=== PATIENT | male | born 1955 | race Caucasian/White ===

== ENCOUNTER 2016-07-01 07:25 | Outpatient (CLI) | payer MEDICARE, MEDICAID | END 2016-07-01 07:26 | disposition home or self-care (01) | DX: E55.9 Vitamin D deficiency, unspecified (principal); M88.82 Osteitis deformans of upper arm ==

== ENCOUNTER 2016-07-27 08:00 | Outpatient (CLI) | payer MEDICARE, MEDICAID | END 2016-07-27 08:01 | disposition home or self-care (01) | DX: E78.5 Hyperlipidemia, unspecified (principal); Z12.5 Encounter for screening for malignant neoplasm of prostate; Z79.899 Other long term (current) drug therapy | CPT/HCPCS: 36415; 80053; 80061; 80178; 84443; G0103 ==

== ENCOUNTER 2016-08-19 11:40 | Outpatient (CLI) | payer MEDICARE, MEDICAID | END 2016-08-19 11:41 | disposition home or self-care (01) | DX: M88.82 Osteitis deformans of upper arm (principal); E55.9 Vitamin D deficiency, unspecified ==

== ENCOUNTER 2016-11-02 08:00 | Outpatient (CLI) | payer MEDICARE, MEDICAID ==
[2016-11-05 18:37] LABS: TEST RESULT REPORT (())
== END 2016-11-02 08:01 | disposition home or self-care (01) ==
LOC: LAB.WCP 08:00
PROVIDERS: ATTEND Internal Medicine Endocrinology, Diabetes & Metabolism
DX: M88.82 Osteitis deformans of upper arm (principal)
CPT/HCPCS: 36415; 81599; 84075

== ENCOUNTER 2016-12-01 15:57 | Outpatient (CLI) | payer MEDICARE, MEDICAID ==
[2016-12-01 19:19] LABS: BILIRUBIN,TOTAL 0.7 mg/dL (0.2-1.0); TOTAL PROTEIN 7.5 g/dL (6.7-8.2)
[2016-12-01 19:26] LABS: BILIRUBIN,DIRECT < 0.1 mg/dL (0.1-0.5)
== END 2016-12-01 15:58 | disposition home or self-care (01) ==
LOC: LAB.WCP 15:57
PROVIDERS: ATTEND Physician Assistant Medical
DX: Z79.899 Other long term (current) drug therapy (principal)
CPT/HCPCS: 36415; 80076

== ENCOUNTER 2016-12-02 11:20 | Outpatient (CLI) | payer MEDICARE, MEDICAID ==
--- NOTE | 2016-12-02 16:00 | XRAY Report ---
THREE VIEW STANDING RIGHT KNEE: 12/02/2016 CLINICAL INDICATION: Pain. FINDINGS: AP, lateral, and sunrise views of the right knee demonstrate severe osteoarthritis, with c omplete collapse of the lateral femorotibial joint space. A small effusion is present. Postoperative changes of previous ACL reconstruction are noted. IMPRESSION: SEVERE OSTEOARTHRITIS. POSTOPERATIVE CHANGES. SMALL EFFUSION. JOB #: [id number] EXT JOB #:[id number]
== END 2016-12-02 11:21 | disposition home or self-care (01) ==
LOC: DI 11:20
PROVIDERS: ATTEND Physician Assistant Medical
DX: M17.11 Unilateral primary osteoarthritis, right knee (principal)

== ENCOUNTER 2016-12-10 14:59 | Outpatient (CLI) | payer MEDICARE, MEDICAID ==
[2016-12-10 15:51] LABS: CREATININE 1.3 mg/dL (0.6-1.2)
[2016-12-10] MEDS ORDERED: GADOBUTROL 7.5 MMOL/7.5 ML VIAL IVP ONE (16:49)
--- NOTE | 2016-12-11 17:16 | MRI Report ---
EXAM: RIGHT KNEE MRI WITHOUT AND WITH CONTRAST EXAM DATE: 12/10/2016 05:15 PM. CLINICAL HISTORY: KNEE PAIN RIGHT. COMPARISON: X-ray 12/02/2016. TECHNIQUE: Multiplanar, multisequence T1-weighted and fluid-sensitive sequences of the knee before an d after administration of intravenous contrast. IV contrast: 7.5 cc gadavist gadolinium. Other: None. FINDINGS: Bones: Previous ACL repair with bone tunnels in expected positions. However, the ACL graft is disrupt ed. Severe degenerative joint disease in all 3 compartments with moderate subarticular cyst formation in the proximal tibiofibular compartment, and partial flattening of the medial and lateral condyle artic ular surfaces. No acute fracture. Articular Cartilage: Grade 4 chondromalacia in the lateral compartment. Grade 3 chondromalacia medial compartment. Grade 2 and 3 chondromalacia patella. Medial Meniscus: Large complex degenerated tear of the majority of the posterior horn and body medial meniscus with a 1 cm displaced flap fragment. Lateral Meniscus: Extensive degeneration versus prior partial meniscectomy posterior horn and body. N o displaced fragments. Cruciate Ligaments: ACL graft disrupted in the joint space. PCL intact. Collateral Ligaments: The medial collateral and lateral collateral ligamentous structures are intact. Tendons: The quadriceps, patellar, semimembranosus, and popliteus tendons are unremarkable. Musculature: Edema of the popliteus tendon. Other: Small joint effusion. Diffuse synovitis and synovial enhancement and thickening. 2 x 0.5 cm lo ose joint body anterior intercondylar joint space. No popliteal cyst. The medial and lateral retinacu la are intact. Mild soft tissue edema. IMPRESSION: 1. Severe degenerative joint disease in all 3 compartments with subarticular cyst formation proximal tibiofibular joint. 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 2. Disrupted ACL graft. 3. Complex degenerated tear posterior horn and body medial meniscus with displaced flap fragment. 4. Degenerated posterior horn and body lateral meniscus. 5. Anterior 2 x 0.5 cm loose joint body. 6. Joint effusion and synovitis. [facility] MUSCULOSKELETAL RADIOLOGY SECTION Referring Provider Line: [phone] SITE ID: [id number]
== END 2016-12-10 15:00 | disposition home or self-care (01) ==
LOC: LAB 14:59
PROVIDERS: ATTEND Physician Assistant Medical
DX: S83.231A Complex tear of medial meniscus, current injury, right knee, initial encounter (principal); T84.89XA Other specified complication of internal orthopedic prosthetic devices, implants and grafts, initial encounter; M23.351 Other meniscus derangements, posterior horn of lateral meniscus, right knee; M25.461 Effusion, right knee; M65.88 Other synovitis and tenosynovitis, other site; M23.41 Loose body in knee, right knee; M17.11 Unilateral primary osteoarthritis, right knee; Z79.899 Other long term (current) drug therapy; M94.261 Chondromalacia, right knee; S83.194A Other dislocation of right knee, initial encounter
CPT/HCPCS: 36415; 73723; 82565; A9585

== ENCOUNTER 2017-01-02 08:20 | Outpatient (CLI) | payer MEDICARE, MEDICAID | END 2017-01-02 08:21 | disposition home or self-care (01) | LOC: DI 08:20 | PROVIDERS: ATTEND Physician Assistant Medical | DX: I49.9 Cardiac arrhythmia, unspecified (principal); I51.7 Cardiomegaly | CPT/HCPCS: 93306 ==

== ENCOUNTER 2017-01-25 10:53 | Outpatient (CLI) | payer MEDICARE, MEDICAID ==
[2017-01-28 19:47] LABS: TEST RESULT REPORT (())
== END 2017-01-25 10:54 | disposition home or self-care (01) ==
LOC: LAB.WCP 10:53
PROVIDERS: ATTEND Internal Medicine Endocrinology, Diabetes & Metabolism
DX: M88.82 Osteitis deformans of upper arm (principal)
CPT/HCPCS: 36415; 81599; 84075

== ENCOUNTER 2017-01-27 08:12 | Outpatient (CLI) | payer MEDICARE, MEDICAID ==
--- NOTE | 2017-01-27 12:05 | CARDIAC PROCEDURE NOTE ---
DATE OF SERVICE: 01/27/2017 00:00:00 PRIMARY CARE PHYSICIAN: Geri Gmaboa PA-C PROCEDURE: Pharmacologic stress test with Lexiscan. PROCEDURE SYMPTOMS: Preoperative total knee replacement with intraventricular conduction delay and LV H. CARDIAC RISK FACTORS: Include age. PREVIOUS CARDIAC PROCEDURES: Echocardiogram. CURRENT SYMPTOMATOLOGY: No current symptoms. CLINICAL HISTORY: A 61-year-old male without known coronary artery disease. INITIAL RESTING VITAL SIGNS: Blood pressure 138/78, heart rate 54, height 72 inches, weight 223 pound s, BMI 30.3. PROCEDURE AND FINDINGS: The patient's identity and date verified. Consent signed. Safety stop. Pharmacologic stress testing was performed with Lexiscan at a dose of 0.4 mg over 10 seconds. The hea rt rate increased to 77 beats per minute during the infusion. Blood pressure response was normal duri ng the stress procedure. The patient developed symptoms of head pressure, which spontaneously subside d. The resting ECG demonstrated sinus rhythm with an intraventricular conduction delay of incomplete right bundle branch block. Maximum ST segment depression was zero. There was no ectopy. FINAL IMPRESSION 1. Negative stress electrocardiogram for ischemia by electrocardiographic criteria. 2. Negative stress test clinically for angina. 3. No ectopy. 4. Await myocardial perfusion scan report. JOB #: [id number] EXT JOB #:[id number]
--- NOTE | 2017-01-27 15:37 | Nuclear Medicine Report ---
EXAM: SINGLE-ISOTOPE PHARMACOLOGICAL STRESS TEST WITH ADENOSINE. SINGLE-ISOTOPE AND SAME-DAY REST/STRESS MY OCARDIAL PERFUSION SCANS WITH TOMOGRAPHIC IMAGING, QUANTITATIVE ANALYSIS, WALL MOTION ANALYSIS AND CA LCULATION OF EJECTION FRACTION. EXAM DATE: 01/27/2017 09:57 AM. CLINICAL HISTORY: Arrhythmia, left ventricular hypertrophy. COMPARISON: Prior CT 2011. TECHNIQUE: Following the intravenous administration of 11 mCi of Tc-99m sestamibi, a rest myocardial perfusion scan was done with tomography. Motion correction was applied when appropriate. After a delay of several hours on the same day, a pharmacological stress was performed with the infus ion of adenosine. According to protocol, 40 mCi of Tc-99m sestamibi was injected for stress myocardia l perfusion scan. Stress myocardial perfusion was done with tomography without attenuation correction . Motion correction was applied when appropriate. Gated tomographic images were obtained for wall motion analysis and computation of left ventricular ejection fraction. FINDINGS: There is a moderate severity, small, reversible perfusion defect in the apical segment sugg estive of ischemia. There are no fixed perfusion defects. No other convincing perfusion abnormalities. No convincing evidence of transient ischemic dilatation. Resting wall motion analysis demonstrates normal wall motion The left ventricular end-diastolic volume is 125 cc. The left ventricular end-systolic volume is 40 c c. The left ventricular ejection fraction is calculated to be 68%. IMPRESSION: 1. Reversible perfusion defect in the apical segment suggestive of ischemia. 2. Normal left ventricular ejection fraction of 68%. 3. Normal segmental and global wall motion. 4. Normal left ventricular cavity size, no change with stress. YOHAN Referring Provider Line: [phone] SITE ID: [id number]
[2017-01-27 17:55] VITALS: BP 138/78
== END 2017-01-27 08:13 | disposition home or self-care (01) ==
LOC: DI 08:12
PROVIDERS: ATTEND Physician Assistant Medical
DX: I51.7 Cardiomegaly (principal); I49.9 Cardiac arrhythmia, unspecified
CPT/HCPCS: 78452; 93017; A9500

== ENCOUNTER 2017-02-08 13:02 | Emergency (ER) | payer MEDICARE, MEDICAID ==
--- NOTE | 2017-02-08 13:46 | ED Physician Documentation ---
History of Present Illness - Stated complaint Stated Complaint: CHEST PAIN - Chief complaint Chief Complaint: Cardiac - Additonal information Additional information: hx from pt 61 male to ER today with chest pain waxing and waning since 11Am, associated SOA and fatigue known CAD - he had pre-op work up that revealed a fib and subsequent stress testing showed a blockage and he is due to get angioplasty next tuesday took nitro X 2 s relief so came to ER as instructed presently no pain but has been waxing and waning Review of Systems Constitutional: denies: Fever, Chills Cardiac: reports: Chest pain / pressure Respiratory: reports: Dyspnea GI: denies: Abdominal Pain, Vomiting, Diarrhea Musculoskeletal: denies: Extremity swelling Neurologic: denies: Generalized weakness Endocrine: denies: Easy bruising / bleeding Immunocompromised: denies: Immunocompromised PD PAST MEDICAL HISTORY - Past Medical History Past Medical History: Yes Cardiovascular: High cholesterol Respiratory: None Neuro: None Endocrine/Autoimmune: None GI: Hemorrhoids : None HEENT: Chronic vision loss Psych: Anxiety, Bipolar disorder Musculoskeletal: Osteoarthritis, Chronic back pain Derm: None - Past Surgical History Past Surgical History: Yes General: Appendectomy Ortho: Other - Present Medications Home Medications: Ambulatory Orders Medication Instructions Recorded Confirmed [place] 1,200 mg PO DAILY 10/18/12 02/08/17 Cyclobenzaprine [Flexeril] 5 mg PO TID PRN 11/08/12 02/08/17 QUEtiapine [SEROquel] 200 mg PO HS 11/08/12 02/08/17 DULoxetine [Cymbalta] 20 02/08/17 oxyCODONE ER [OxyCONTIN] 10 mg PO BID 02/08/17 02/08/17 - Allergies Allergies/Adverse Reactions: Allergies Allergy/AdvReac Type Severity Reaction Status Date / Time Penicillins Allergy Severe Respiratory Verified 11/08/12 18:07 - Social History Does the pt smoke?: No Smoking Status: Never smoker Does the pt drink ETOH?: No Does the pt have substance abuse?: No - Immunizations Immunizations are current?: Yes - POLST Patient has POLST: No PD ED PE NORMAL - Vitals Vital signs reviewed: Yes - General General: Alert and oriented X 3 - Cardiac Cardiac: RRR - Respiratory Respiratory: No respiratory distress - Abdomen Abdomen: Soft, Non tender - Extremities Extremities: No deformity, No edema - Neuro Neuro: Alert and oriented X 3, No motor deficit, No sensory deficit Results - Vitals Vitals: Vital Signs - 24 hr 02/08/17 02/08/17 02/08/17 13:11 14:39 15:12 Temperature Heart Rate 56 L 52 L 59 L Respiratory 16 Rate Blood Pressure 112/61 113/72 120/99 H O2 Saturation 98 99 96 02/08/17 16:10 Temperature 36.6 C Heart Rate 59 L Respiratory 16 Rate Blood Pressure 116/82 H O2 Saturation 96 Oxygen O2 Source Room air - EKG (time done) 1315 Rate: Rate (enter#) (59) Rhythm: NSR [place]: Normal Intervals: Normal HI QRS: Normal Ischemia: Normal ST segments - Labs Labs: Laboratory Tests 02/08/17 02/08/17 02/08/17 13:50 13:50 13:50 WBC 7.4 RBC 4.15 L Hgb 12.8 L Hct 37.4 L MCV 90.1 MCH 30.8 MCHC 34.2 RDW 12.6 Plt Count 215 MPV 7.0 L Neut # 4.7 Lymph # 1.8 [place] # 0.5 Eos # 0.4 Baso # 0.0 Absolute Nucleated RBC 0.00 Nucleated RBCs 0.0 Sodium 137 Potassium 4.0 Chloride 107 Carbon Dioxide 24 Anion Gap 6.0 BUN 15 Creatinine 0.9 Estimated GFR (MDRD) 86 L Glucose 103 H Calcium 9.6 Total Bilirubin 0.3 AST 18 ALT 23 Alkaline Phosphatase 42 Troponin I < 0.04 Total Protein 7.4 Albumin 4.4 Globulin 3.0 Albumin/Globulin Ratio 1.5 Lipase 18 L - Rads (name of study) CXR Radiology: See rad report (mild vascular fullness) PD MEDICAL DECISION MAKING - ED course ED course: known CAD due for angioplasty now with new chest pain not relieved with nitro at home spoke with cardio Dr Mccormick at [facility] and she accept pt in transfer and agrees with starting heparin in addition to asa and nitro past Departure - Departure Disposition: 02 Transfer Acute Care Hosp Clinical Impression: Chest pain Qualifiers: Chest pain type: unspecified Qualified Code(s): R07.9 - Chest pain, unspecified Condition: Good Discharge Date/Time: 02/08/17 16:25
[2017-02-08 13:56] LABS: BASOPHILS % (AUTO) 0.5 %; EOSINOPHILS # (AUTO) 0.4 10^3/uL (0.0-0.7); HCT - HEMATOCRIT 37.4 % (42.0-52.0); HGB - HEMOGLOBIN 12.8 g/dL (14.0-18.0); LYMPHOCYTES # (AUTO) 1.8 10^3/uL (1.5-3.5); LYMPHOCYTES % (AUTO) 24.6 %; MEAN CORPUSCULAR HEMOGLOBIN 30.8 pg (27.0-31.0); MEAN CORPUSCULAR HGB CONC 34.2 g/dL (32.0-36.0); MEAN CORPUSCULAR VOLUME 90.1 fL (80.0-94.0); MONOCYTES # (AUTO) 0.5 10^3/uL (0.0-1.0); MONOCYTES % (AUTO) 6.3 %; NEUTROPHILS # (AUTO) 4.7 10^3/uL (1.5-6.6); NEUTROPHILS % (AUTO) 63.6 %; RED BLOOD COUNT 4.15 10^6/uL (4.70-6.10); RED CELL DISTRIBUTION WIDTH 12.6 % (12.0-15.0); UNCORRECTED WHITE BLOOD COUNT 7.4 x10^3/uL; WHITE BLOOD COUNT 7.4 x10^3/uL (4.8-10.8)
[2017-02-08 14:09] LABS: ALBUMIN/GLOBULIN RATIO 1.5 (1.0-2.2); BILIRUBIN,TOTAL 0.3 mg/dL (0.2-1.0); CALCIUM 9.6 mg/dL (8.5-10.3); CREATININE 0.9 mg/dL (0.6-1.2); TOTAL PROTEIN 7.4 g/dL (6.7-8.2)
[2017-02-08] MEDS ORDERED: ASPIRIN CHEW 81 MG TABLET PO STA (14:27)
[2017-02-08] MEDS ORDERED: NITROGLYCERIN 2% PASTE TOP STA (14:27)
[2017-02-08] MEDS ORDERED: NITROGLYCERIN 2% PASTE TOP ONE (14:34)
[2017-02-08] MEDS ORDERED: ASPIRIN CHEW 81 MG TABLET ONE (14:34)
--- NOTE | 2017-02-08 14:36 | XRAY Preliminary Report ---
Exam: XR Chest 1 View IMPRESSION: Mild vascular fullness. [facility] SITE ID: [id number]
[2017-02-08] MEDS ORDERED: SODIUM CHLORIDE FLUSH 0.9% 10 ML SYRINGE IVP ONE (14:37)
--- NOTE | 2017-02-08 14:38 | XRAY Report ---
EXAM: CHEST RADIOGRAPHY EXAM DATE: 02/08/2017 02:23 PM. CLINICAL HISTORY: Cp soa. COMPARISON: None. TECHNIQUE: 1 view. FINDINGS: Lungs/Pleura: No localized infiltrate, consolidation, effusion, or pneumothorax. Mediastinum: Normal heart size. Mild diffuse vascular fullness. Other: Degenerative changes. IMPRESSION: Mild vascular fullness. [facility] Referring Provider Line: [phone] SITE ID: [id number]
[2017-02-08] MEDS ORDERED: HEPARIN 5,000 UNIT/ML VIAL IVP ONE (14:47)
[2017-02-08] MEDS ORDERED: HEPARIN 25,000 UNITS/500 ML 500 ML IV STA (14:47)
[2017-02-08] MEDS ORDERED: HEPARIN 5,000 UNIT/ML VIAL ONE (14:53)
[2017-02-08] MEDS ORDERED: HEPARIN 25,000 UNITS/500 ML 500 ML IV ONE (14:53)
[2017-02-08] MEDS ORDERED: oxyCODONE ER 10 MG TABLET PO STA (16:02)
[2017-02-08] MEDS ORDERED: oxyCODONE 5 MG TABLET ONE (16:06)
[2017-02-08 16:10] VITALS: BP 116/82
== END 2017-02-08 16:25 | disposition short-term general hospital (02) ==
LOC: ED 13:02
DX: R07.9 Chest pain, unspecified (principal); I25.10 Atherosclerotic heart disease of native coronary artery without angina pectoris; E78.00 Pure hypercholesterolemia, unspecified
CPT/HCPCS: 36415; 71010; 80053; 83690; 84484; 85025; 93005; 96365; 96376; 99284; A9270

== ENCOUNTER 2017-02-08 16:10 | Outpatient (CLI) | payer MEDICARE, MEDICAID | END 2017-02-08 16:11 | disposition short-term general hospital (02) | LOC: EMS 16:10 | PROVIDERS: ATTEND Surgery | DX: I24.9 Acute ischemic heart disease, unspecified (principal) | CPT/HCPCS: A0425; A0426 ==

== ENCOUNTER 2017-03-01 08:00 | Outpatient (CLI) | payer MEDICARE, MEDICAID | END 2017-03-01 08:01 | disposition home or self-care (01) | LOC: LAB.R 08:00 | PROVIDERS: ATTEND Physician Assistant Medical | DX: M17.11 Unilateral primary osteoarthritis, right knee (principal); Z01.818 Encounter for other preprocedural examination | CPT/HCPCS: 87640 ==

== ENCOUNTER 2017-03-29 05:47 | Inpatient (IN) | payer MEDICARE, MEDICAID ==
[2017-03-29] MEDS ORDERED: CELECOXIB 100 MG CAPSULE PO ONE (06:33)
[2017-03-29] MEDS ORDERED: ceFAZolin 2 GM/50 ML 0 GM/0 ML BAG IV ONE (06:33)
[2017-03-29] MEDS ORDERED: ACETAMINOPHEN 1,000 MG/100 ML 100 ML IV ONE ×2 (06:34→10:15)
[2017-03-29] MEDS ORDERED: LACTATED RINGERS 1,000 ML IV ONE ×3 (06:59→10:06)
[2017-03-29] MEDS ORDERED: CLINDAMYCIN 600 MG/50 ML 50 ML IV ONE (07:24)
[2017-03-29] MEDS ORDERED: MORPHINE PF 10 MG/10 ML AMP SUBQ ONE (08:23)
[2017-03-29] MEDS ORDERED: EPINEPHrine 1 MG/ML AMP SUBQ ONE (08:26)
[2017-03-29] MEDS ORDERED: KETOROLAC 30 MG/ML VIAL IM ONE (08:27)
[2017-03-29] MEDS ORDERED: ROPIVACAINE 0.2% PF 20 ML AMPULE SUBQ ONE (08:31)
[2017-03-29] MEDS ORDERED: BUPIVACAINE 0.5% PF 30 ML VIAL SUBQ ONE (08:32)
[2017-03-29] MEDS ORDERED: DEXAMETHASONE 4 MG/ML VIAL IVP ONE (10:15)
[2017-03-29] MEDS ORDERED: ONDANSETRON 4 MG/2 ML VIAL IVP ONE (10:15)
[2017-03-29] MEDS ORDERED: KETOROLAC 30 MG/ML VIAL IVP ONE (10:15)
[2017-03-29] MEDS ORDERED: LIDOCAINE-MPF 2% 5 ML VIAL IM ONE (10:15)
[2017-03-29] MEDS ORDERED: PROPOFOL 200 MG/20 ML VIAL IVP ONE (10:15)
[2017-03-29] MEDS ORDERED: CLINDAMYCIN 600 MG IV ONE (10:15)
[2017-03-29] MEDS ORDERED: METOCLOPRAMIDE 10 MG/2 ML VIAL IVP ONE (10:15)
[2017-03-29] MEDS ORDERED: TRANEXAMIC ACID 1,000 MG/10 ML VIAL IV ONE (10:15)
[2017-03-29] MEDS ORDERED: HYDROCORTISONE 1% CREAM 28 GM TUBE TOP PRN (10:24)
[2017-03-29] MEDS ORDERED: NITROGLYCERIN SL 0.4 MG TABLET SL PRN (10:24)
--- NOTE | 2017-03-29 10:24 | OPERATIVE REPORT ---
Operative Report - General Admit Date: 03/29/17 Procedure Date: 03/29/17 Planned Procedure: Right TKA Pre-Op Diagnosis: DJD right Knee Procedure Performed: Right total knee arthroplasty Post Op Diagnosis: same - Procedure Note Primary Surgeon: charmaine Anesthesia Technique: General mask, Spinal Estimated Blood Loss (mL): 50 Urine Output (mL): 250 Drain/Tube Type: Hemovac
[2017-03-29] MEDS ORDERED: SODIUM CHLORIDE FLUSH 0.9% 10 ML SYRINGE IVP PRN (10:26)
[2017-03-29] MEDS ORDERED: PROCHLORPERAZINE 10 MG/2 ML VIAL IVP PRN (10:26)
[2017-03-29] MEDS ORDERED: BISACODYL 10 MG SUPP PR PRN (10:26)
[2017-03-29] MEDS ORDERED: ACETAMINOPHEN 325 MG TABLET PO PRN (10:26)
[2017-03-29] MEDS ORDERED: ONDANSETRON 4 MG/2 ML VIAL IVP PRN (10:26)
[2017-03-29] MEDS: oxyCOD/ACETAMIN 5 MG/325 MG TABLET PO PRN ×3 (12:02→22:19)
--- NOTE | 2017-03-29 12:28 | XRAY Report ---
TWO-VIEW RIGHT KNEE: 03/29/2017 CLINICAL INDICATION: Post-op. FINDINGS: Frontal and lateral views of the right knee demonstrate a right total knee replacement in place. Subcutaneous gas and suprapatellar drain are noted. There is a retention button along the la teral femoral condyle from a previous right ACL replacement. There is no evidence of acute fracture or immediate hardware complication. IMPRESSION: EXPECTED POSTOPERATIVE APPEARANCE OF RIGHT KNEE REPLACEMENT. JOB #: [id number] EXT JOB #:[id number]
[2017-03-29] MEDS: HYDROmorphone 1 MG/ML AMP IVP PRN ×3 (12:54→19:10)
[2017-03-29] MEDS: SODIUM CHLORIDE FLUSH 0.9% 10 ML SYRINGE IVP SCH ×2 (13:09→22:15)
--- NOTE | 2017-03-29 13:25 | OPERATIVE REPORT ---
DATE OF SURGERY: 03/29/2017 00:00:00 PREOPERATIVE DIAGNOSIS: Right knee severe osteoarthritis. POSTOPERATIVE DIAGNOSIS: Right knee severe osteoarthritis. NAME OF PROCEDURE: Right total knee replacement arthroplasty. SURGEON: Aida Aly MD ANESTHESIA: Was by Dr. Deleon. INDICATIONS FOR SURGERY: The patient is a 62-year-old male with multiple previous right knee surgerie s including anterior cruciate ligament reconstruction, who has a progressively developed severe osteo arthritis of his knee and now presents for total knee arthroplasty. The patient has failed nonoperati ve treatment. FINDINGS AT SURGERY: The patient was found to have severe degeneration of his knee with hypertrophic and generalized spurs and loose bodies and degeneration of his meniscal tissues and failure of his AC L graft. The bone quality was fairly good. DESCRIPTION OF OPERATIVE PROCEDURE: The patient was taken to the operating room. He was given a spina l anesthetic and then general anesthesia by mask as the procedure was undertaken. A timeout was held, after which the limb was sterilely prepped and draped in standard fashion and the tourniquet inflate d to 300 mmHg. A curved incision was made under tourniquet control, and a medial parapatellar incisio n made. The patient had dense scarring around his knee and prominent loose bodies, some of which were then removed, as well as the residuals of anterior crucial ligament and medial and lateral meniscus. A lateral release was performed on the patella to allow mobilization, and the patella was actually r esected down 9 mm to reduce its bulk and size. Osteophytes were removed from the surfaces of the bone . A central medullary hole was made in the femur for the distal cutting block, and this cut was made resecting an additional 2 mm. The distal sizing block was applied, and the femur sized as a 9, and th e cutting block was applied, and the 4-in-1 cuts were then made. The patient was very tight posterior ly, and posterior osteophytes were resected with an osteotome, after which the femur was subluxated a nteriorly with retractors, and the proximal tibia cutting guide was applied, allowing a 2 mm resectio n below the low point of the lateral plateau, which had the most wear. Additional 2 mm were taken aft er the resection appeared subadequate. The residual posterior horns of the menisci were removed, and at this point, it was elected to recess and remove the PCL. Posterior osteophytes were again searched for, and more osteophyte and loose bodies were removed. A sizing block was placed on the proximal ti panfilo, which allowed a size F implant to be used and appropriate drilling and broaching for the stem. I t was elected to use a long stem on this patient. The trial components were then brought into the fie ld, placing the size F base plate on the tibia, placing the size 9 normal femur, followed by sequenti al poly sizes with 16 mm being most successful in restoring stability. The patella sized at a 32 mm d iameter, 8.5 mm thickness to restore anatomy. The trials were successful and stable and allowed range of motion and had good fit. They were removed from the knee, and the surfaces were flushed and irrig ated as the components were opened, and once they were dried and the cement was mixed, the components were cemented in, starting with the tibia size F cemented baseplate with a tapered extension on the 14 mm diameter x 30 mm on the tibial baseplate, cementing in the #9 femur, cruciate retaining type, f ollowed by the insertion of highly crosslinked polyethylene all poly patella 32 mm diameter on the kn ee and a 16 mm insert medial congruent poly in the tibia. The stability was good and range of motion excellent, and with these cemented in place, all excess cement was removed, and prior to closure, the cement hardened. A drain was placed, and closure was with interrupted layers of FiberWire in the med ial retinaculum, layers of Vicryl subcutaneous and Monocryl closure of skin. The sterile dressings we re applied, and the drain was secured, and the patient was then transported onto a gurney into the re covery room in stable condition. ESTIMATED BLOOD LOSS: Minimal. COMPLICATIONS: None. SPONGE AND NEEDLE COUNTS: Correct. JOB #: [id number] EXT JOB #:[id number]
[2017-03-29] MEDS: ASPIRIN 325 MG TABLET PO SCH (16:07)
[2017-03-29] MEDS: SODIUM CHLORIDE 0.45% 1,000 ML IV SCH (16:07)
[2017-03-29] MEDS ORDERED: QUEtiapine 25 MG TABLET PO SCH (20:00)
[2017-03-29] MEDS: ATORVASTATIN 10 MG TABLET PO SCH (20:07)
[2017-03-29] MEDS: CYCLOBENZAPRINE 10 MG TABLET PO PRN (20:07)
[2017-03-30] MEDS: HYDROmorphone 1 MG/ML AMP IVP PRN ×7 (00:18→22:48)
[2017-03-30] MEDS: SODIUM CHLORIDE 0.45% 1,000 ML IV SCH ×3 (01:33→20:44)
[2017-03-30] MEDS: oxyCOD/ACETAMIN 5 MG/325 MG TABLET PO PRN ×6 (02:15→23:44)
[2017-03-30] MEDS: SODIUM CHLORIDE FLUSH 0.9% 10 ML SYRINGE IVP SCH ×3 (06:20→22:11)
[2017-03-30 06:31] LABS: HCT - HEMATOCRIT 29.6 % (42.0-52.0); HGB - HEMOGLOBIN 9.9 g/dL (14.0-18.0)
[2017-03-30 06:37] LABS: CALCIUM 8.8 mg/dL (8.5-10.3); CREATININE 0.9 mg/dL (0.6-1.2); POTASSIUM 3.8 mmol/L (3.5-5.0)
[2017-03-30] MEDS: CYCLOBENZAPRINE 10 MG TABLET PO PRN ×3 (07:40→22:08)
[2017-03-30] MEDS ORDERED: QUEtiapine 25 MG TABLET PO SCH (08:49)
[2017-03-30] MEDS: POLYETHYLENE GLYCOL 3350 17 GM PACKET PO SCH (08:55)
[2017-03-30] MEDS: ASPIRIN 325 MG TABLET PO SCH ×2 (08:56→16:14)
[2017-03-30] MEDS: DOCUSATE SODIUM 250 MG CAPSULE PO SCH (08:56)
[2017-03-30] MEDS: DULoxetine 30 MG CAPSULE PO SCH (08:56)
[2017-03-30] MEDS: SENNA 8.6 MG TABLET PO PRN ×2 (08:57→23:44)
[2017-03-30] MEDS: ACETAMINOPHEN 1,000 MG/100 ML 100 ML IV PRN (08:58)
--- NOTE | 2017-03-30 08:59 | PROVIDER PROGRESS NOTE ---
Subjective - General Admit Date: 03/29/17 Procedure Date: 03/29/17 Post Op Days: 1 Procedure Performed: Right total Knee Arthroplasty Objective - Patient Data Reviewed Vital Signs: Yes Vital Signs: Vital Signs x48h Temp Pulse Resp BP BP Pulse Ox 03/30/17 07:31 36.5 C 66 20 123/64 96 03/30/17 04:00 36.6 C 67 18 105/54 L 98 Weight: Weight 03/28/17 03/29/17 03/30/17 23:59 23:59 23:59 Weight (kg) 96.3 kg Intake & Output: Intake and Output Totals x24h 03/28/17 03/29/17 03/30/17 23:59 23:59 23:59 Intake Total 7227.687 1964.667 Output Total 2480 1730 Balance -1478.333 -492.333 - Lab Results Lab Results: 03/30/17 05:40 03/30/17 05:40 Other Lab Results: Lab Results x24hrs 03/30/17 03/30/17 Range/Units 05:40 05:40 Hgb 9.9 L (14.0-18.0) g/dL Hct 29.6 L (42.0-52.0) % Sodium 140 (135-145) mmol/L Potassium 3.8 (3.5-5.0) mmol/L Chloride 110 (101-111) mmol/L Carbon Dioxide 23 (21-32) mmol/L Anion Gap 7.0 (6-13) BUN 13 (6-20) mg/dL Creatinine 0.9 (0.6-1.2) mg/dL Estimated GFR (MDRD) 86 L (>89) Glucose 109 H (70-100) mg/dL Calcium 8.8 (8.5-10.3) mg/dL - Imaging Results Radiology Imaging: positive: EMP read indepedently - Current Medications Current Medications: Current Medications Generic Name Dose Route Start Last Admin Trade Name Freq PRN Reason Stop Dose Admin Aspirin 325 mg 03/29/17 17:00 03/29/17 16:07 Anais PO 325 mg BIDWM HEATH Administration Atorvastatin Calcium 10 mg 03/29/17 21:00 03/29/17 20:07 Lipitor PO 10 mg 2100 HEATH Administration Cyclobenzaprine HCl 10 mg 03/29/17 10:24 03/30/17 07:40 Flexeril PO 10 mg TID PRN Administration PAIN Hydromorphone HCl 1 mg 03/29/17 10:26 03/30/17 05:22 Dilaudid IVP 1 mg Q2HR PRN Administration Breakthrough Pain Sodium Chloride 1,000 mls @ 100 mls/hr 03/29/17 11:00 03/30/17 01:33 Normal Saline 0.45% IV 100 mls/hr .Q10H HEATH Administration Oxycodone/Acetaminophen 2 tab 03/29/17 10:26 03/30/17 06:19 Percocet 5 Mg/325 Mg PO 2 tab Q4HR PRN Administration PAIN Sodium Chloride 10 ml 03/29/17 14:00 03/30/17 06:20 Normal Saline Flush 0.9% IVP Not Given Q8HR HEATH
[2017-03-30] MEDS ORDERED: MAGNESIUM CITRATE 296 ML BOTTLE PO ONE (16:25)
[2017-03-30] MEDS: KETOROLAC 30 MG/ML VIAL IVP PRN (18:34)
[2017-03-30] MEDS ORDERED: LITHIUM 150 MG CAPSULE PO SCH (21:00)
[2017-03-30] MEDS ORDERED: SODIUM CHLORIDE FLUSH 0.9% 10 ML SYRINGE IVP ONE (21:16)
[2017-03-30] MEDS: ATORVASTATIN 10 MG TABLET PO SCH (22:08)
[2017-03-31] MEDS: KETOROLAC 30 MG/ML VIAL IVP PRN (02:24)
[2017-03-31] MEDS: HYDROmorphone 1 MG/ML AMP IVP PRN (03:01)
[2017-03-31] MEDS: oxyCOD/ACETAMIN 5 MG/325 MG TABLET PO PRN ×2 (04:38→10:08)
[2017-03-31] MEDS: SODIUM CHLORIDE FLUSH 0.9% 10 ML SYRINGE IVP SCH (05:53)
[2017-03-31] MEDS: SODIUM CHLORIDE 0.45% 1,000 ML IV SCH (05:59)
[2017-03-31] MEDS: CYCLOBENZAPRINE 10 MG TABLET PO PRN ×2 (06:00→11:15)
--- NOTE | 2017-03-31 09:44 | PROVIDER PROGRESS NOTE ---
Subjective - General Admit Date: 03/29/17 Procedure Date: 03/29/17 Post Op Days: 2 Procedure Performed: Right total Knee Arthroplasty - Review of Systems Wound/Incisions: positive: Healing well, No drainage General: positive: Fatigue Musculoskeletal: positive: Joint pain Psychiatric: positive: No symptoms Objective - Patient Data Reviewed Vital Signs: Yes Vital Signs: Vital Signs x48h Temp Pulse Resp BP Pulse Ox 03/31/17 07:39 36.5 C 68 18 96/79 92 03/31/17 06:00 37 C 67 16 116/54 L 98 Weight: Weight 03/29/17 03/30/17 03/31/17 23:59 23:59 23:59 Weight (kg) 96.3 kg Intake & Output: Intake and Output Totals x24h 03/29/17 03/30/17 03/31/17 23:59 23:59 23:59 Intake Total 8396.759 3400.001 1045 Output Total 2480 4005 1750 Balance -5418.397 4778.001 -705 - Lab Results Lab Results: 03/30/17 05:40 03/30/17 05:40 - Current Medications Current Medications: Current Medications Generic Name Dose Route Start Last Admin Trade Name Freq PRN Reason Stop Dose Admin Aspirin 325 mg 03/29/17 17:00 03/30/17 16:14 Anais PO 325 mg BIDWM HEATH Administration Atorvastatin Calcium 10 mg 03/29/17 21:00 03/30/17 22:08 Lipitor PO 10 mg 2100 HEATH Administration Cyclobenzaprine HCl 10 mg 03/29/17 10:24 03/31/17 06:00 Flexeril PO 10 mg TID PRN Administration PAIN Docusate Sodium 250 - 500 mg 03/30/17 09:00 03/30/17 08:56 Colace 250mg Capsule PO 250 mg DAILY HEATH Administration Duloxetine HCl 30 mg 03/30/17 09:00 03/30/17 08:56 Cymbalta PO 30 mg DAILY HEATH Administration Acetaminophen 100 mls @ 400 mls/hr 03/29/17 10:26 03/30/17 09:15 Ofirmev IV Infused Q6HR PRN Infusion PAIN [place] Carbonate 1,200 mg 03/30/17 21:00 03/30/17 22:09 PO 1,200 mg 2100 HEATH Administration Oxycodone/Acetaminophen 2 tab 03/29/17 10:26 03/31/17 04:38 Percocet 5 Mg/325 Mg PO 2 tab Q4HR PRN Administration PAIN Polyethylene Glycol 17 gm 03/30/17 09:00 03/30/17 08:55 Miralax PO 17 gm DAILY HEATH Administration Quetiapine Fumarate 50 mg 03/30/17 08:49 03/30/17 22:08 Seroquel PO 50 mg QPM HEATH Administration Senna 17.2 mg 03/29/17 10:26 03/30/17 23:44 Senokot PO 17.2 mg Q12H PRN Administration Constipation - Physical Exam Wound/Incisions: positive: Healing well Skin: positive: Warm, Dry Extremities: positive: Joint swelling Neurologic/Psychiatric: positive: Motor nml, Sensation nml, Mood/affect nml Impression/Plan - Problem List Problem List: POD #2 Pt is doing well with PT and with walker use. Wound healing well. Plan for d/c home
[2017-03-31] MEDS: ASPIRIN 325 MG TABLET PO SCH (10:04)
[2017-03-31] MEDS: DOCUSATE SODIUM 250 MG CAPSULE PO SCH (10:04)
[2017-03-31] MEDS: ACETAMINOPHEN 1,000 MG/100 ML 100 ML IV PRN (10:05)
[2017-03-31] MEDS: DULoxetine 30 MG CAPSULE PO SCH (10:05)
[2017-03-31] MEDS: POLYETHYLENE GLYCOL 3350 17 GM PACKET PO SCH (10:07)
--- NOTE | 2017-03-31 10:11 | Discharge Plan ---
Discharge Plan Disposition: 01 Home, Self Care Condition: Good Prescriptions: oxyCODONE/ACET 5/325 [Percocet 5 mg/325 mg] 2 tab PO Q4HR PRN #30 tablet PRN Reason: Pain Aspirin [Anais] 325 mg PO BIDWM #60 tablet Senna [Senokot] 17.2 mg PO Q12H PRN #20 tablet PRN Reason: Constipation Diet: Regular Activity Restrictions: Wt Bearing as Tolerated Shower Restrictions: Yes (COVERED) Driving Restrictions: Yes (NO DRIVING) Assistance Devices: Walker Weight Bearing: Full Weight No Smoking: If you smoke, Please STOP! Call for help. Follow-up with: Geri Gamboa PA-C [Primary Care Provider] - Aida Aly MD [Provider Admit Priv/Credential] -
[2017-03-31 10:27] VITALS: BP 134/68
[2017-03-31] MEDS ORDERED: MORPHINE 2 MG/ML SYRINGE IVP ONE (10:45)
[2017-03-31] MEDS ORDERED: oxyCODONE ER 10 MG TABLET PO SCH (11:00)
== END 2017-03-31 11:30 | disposition home or self-care (01) | DRG 470 ==
LOC: MS2 05:47 → MS3 08:18
PROVIDERS: ADMIT Orthopaedic Surgery; ATTEND Orthopaedic Surgery
PROC: 0SRC0J9 Replacement of Right Knee Joint with Synthetic Substitute, Cemented, Open Approach (ICD-10-PCS; principal; 2017-03-29 07:30)
DX: M17.11 Unilateral primary osteoarthritis, right knee (principal); F31.10 Bipolar disorder, current episode manic without psychotic features, unspecified; G62.9 Polyneuropathy, unspecified; M88.9 Osteitis deformans of unspecified bone; I25.10 Atherosclerotic heart disease of native coronary artery without angina pectoris; I51.7 Cardiomegaly; G47.00 Insomnia, unspecified; E78.5 Hyperlipidemia, unspecified; F41.1 Generalized anxiety disorder; M79.7 Fibromyalgia; Z79.891 Long term (current) use of opiate analgesic; Z79.82 Long term (current) use of aspirin
CPT/HCPCS: 36415; 80048; 85014; 85018; J1170

== ENCOUNTER 2017-09-06 08:00 | Outpatient (CLI) | payer MEDICARE, MEDICAID ==
[2017-09-06 19:15] LABS: BASOPHILS % (AUTO) 0.5 %; EOSINOPHILS # (AUTO) 0.3 10^3/uL (0.0-0.7); EOSINOPHILS % (AUTO) 4.8 %; HGB - HEMOGLOBIN 12.9 g/dL (14.0-18.0); LYMPHOCYTES % (AUTO) 26.9 %; MEAN CORPUSCULAR HEMOGLOBIN 29.6 pg (27.0-31.0); MEAN CORPUSCULAR HGB CONC 33.1 g/dL (32.0-36.0); MEAN CORPUSCULAR VOLUME 89.4 fL (80.0-94.0); MONOCYTES # (AUTO) 0.5 10^3/uL (0.0-1.0); MONOCYTES % (AUTO) 6.5 %; NEUTROPHILS # (AUTO) 4.4 10^3/uL (1.5-6.6); NEUTROPHILS % (AUTO) 61.3 %; PLT - PLATELET COUNT 207 10^3/uL (130-450); RED BLOOD COUNT 4.36 10^6/uL (4.70-6.10); RED CELL DISTRIBUTION WIDTH 13.9 % (12.0-15.0); WHITE BLOOD COUNT 7.2 x10^3/uL (4.8-10.8)
[2017-09-06 19:24] LABS: LITHIUM 0.66 mmol/L
[2017-09-06 19:45] LABS: ALBUMIN 4.7 g/dL (3.2-5.5); ALBUMIN/GLOBULIN RATIO 1.6 (1.0-2.2); ALKALINE PHOSPHATASE 53 IU/L (42-121); ALT ALANINE AMINOTRANSFERASE 24 IU/L (10-60); AST ASPARTATE AMINOTRANSFERASE 23 IU/L (10-42); BILIRUBIN,TOTAL 0.4 mg/dL (0.2-1.0); BUN - BLOOD UREA NITROGEN 23 mg/dL (6-20); CALCIUM 10.1 mg/dL (8.5-10.3); CARBON DIOXIDE - CO2 23 mmol/L (21-32); CHLORIDE 104 mmol/L (101-111); CHOL/HDL RATIO 3.9 (<5.0); CHOLESTEROL 171 mg/dL; GFR - MDRD 76 (>89); GLUCOSE 93 mg/dL (70-100); HDL CHOLESTEROL 44 mg/dL; LDL CHOLESTEROL,CALCULATED 98 mg/dL; LDL/HDL RATIO 2.2 (<3.6); SODIUM 139 mmol/L (135-145); TOTAL PROTEIN 7.7 g/dL (6.7-8.2); VLDL CHOLESTEROL 29 mg/dL
[2017-09-06 19:47] LABS: THYROID STIMULATING HORMONE 1.7 uIU/mL (0.34-5.60)
[2017-09-08 09:44] LABS: FERRITIN 127.9 ng/mL (23.9-336.2)
[2017-09-08 09:48] LABS: % IRON SATURATION 27 % (20-50); IRON 103 ug/dL (45-182); TOTAL IRON BINDING CAPACITY 375 ug/dL (250-450); TRANSFERRIN 268 mg/dL (180-329)
== END 2017-09-06 08:01 | disposition home or self-care (01) ==
LOC: LAB.WCP 08:00
PROVIDERS: ATTEND Physician Assistant Medical
DX: D64.9 Anemia, unspecified (principal); I25.10 Atherosclerotic heart disease of native coronary artery without angina pectoris; F31.10 Bipolar disorder, current episode manic without psychotic features, unspecified; M88.9 Osteitis deformans of unspecified bone
CPT/HCPCS: 36415; 80053; 80061; 80178; 81599; 82607; 82728; 83540; 83721; 83970; 84075; 84443; 84466; 85025

== ENCOUNTER 2017-12-07 12:58 | Emergency (ER) | payer MEDICARE, MEDICAID ==
[2017-12-07] MEDS ORDERED: SODIUM CHLORIDE 0.9% 1,000 ML IV ONE (14:58)
--- NOTE | 2017-12-07 15:01 | ED Physician Documentation ---
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 This morning he on awakening developed some pain in his left shoulder and down into his left arm feeling of numbness. He has not had these symptoms previously. He did not notice any exertional component to this was not short of breath or diaphoretic. He does note that he feels a little lightheaded and dizzy and he has been outside daily walking and it has been unusually warm the last 3 days. He usually hydrates with water and feels that he is thirsty now. He has some lightheadedness as well. While he was in the emergency department he noted his blood pressure dropped down and he felt symptoms return. The symptoms are now resolved. Review of Systems Constitutional: reports: Fatigue. denies: Fever, Chills Eyes: denies: Decreased vision Ears: denies: Ear pain Nose: denies: Congestion Throat: denies: Sore throat Cardiac: denies: Chest pain / pressure, Palpitations, Pedal edema, Calf pain Respiratory: reports: Dyspnea. denies: Cough, Wheezing GI: denies: Abdominal Pain, Nausea, Vomiting : denies: Dysuria, Frequency PD PAST MEDICAL HISTORY - Past Medical History Cardiovascular: High cholesterol, Coronary artery disease Respiratory: None Endocrine/Autoimmune: None GI: Hemorrhoids : None HEENT: Chronic vision loss Psych: None Musculoskeletal: Osteoarthritis, Chronic back pain Derm: None - Past Surgical History Past Surgical History: Yes General: Appendectomy Ortho: Other - Present Medications Home Medications: Ambulatory Orders Medication Instructions Recorded Confirmed Atorvastatin [Lipitor] 10 mg PO DAILY PM 03/09/17 03/29/17 Clobetasol Propionate/Emoll 1 applic PO TID PRN 03/09/17 03/29/17 [Clobetasol Emollient 0.05% Crm] Cyclobenzaprine [Flexeril] 10 mg PO TID PRN 03/09/17 03/29/17 DULoxetine [Cymbalta] 30 mg PO DAILY PM 03/09/17 03/29/17 [place] Carbonate 1,200 mg PO QPM 03/09/17 03/29/17 Oxycodone HCl [Oxycodone HCl ER] 10 mg PO DAILY PM 03/09/17 03/29/17 Oxycodone HCl [Oxycodone HCl ER] 15 mg PO DAILY 03/09/17 03/29/17 Quetiapine Fumarate [Seroquel] 50 mg PO DAILY PM 03/09/17 03/29/17 Aspirin [Anais] 325 mg PO BIDWM #60 tablet 03/31/17 Atorvastatin [Lipitor] 10 mg PO 2100 tablet 03/31/17 Nitroglycerin [Nitrostat] 0.4 mg SL Q5MIN PRN tablet 03/31/17 Senna [Senokot] 17.2 mg PO Q12H PRN #20 tablet 03/31/17 oxyCODONE/ACET 5/325 [Percocet 5 2 tab PO Q4HR PRN #30 tablet 03/31/17 mg/325 mg] - Allergies Allergies/Adverse Reactions: Allergies Allergy/AdvReac Type Severity Reaction Status Date / Time Penicillins Allergy Severe Respiratory Verified 03/09/17 11:11 gabapentin AdvReac Hallucinati Verified 03/09/17 11:11 ons ibuprofen AdvReac Unknown Verified 03/09/17 11:11 - Social History Does the pt smoke?: No Smoking Status: Never smoker Does the pt drink ETOH?: No Does the pt have substance abuse?: No - Immunizations Immunizations are current?: Yes - POLST Patient has POLST: No PD ED PE NORMAL - Vitals Vital signs reviewed: Yes (normal ) - General General: Alert and oriented X 3, No acute distress, Well developed/nourished - HEENT HEENT: Atraumatic, PERRL, EOMI - Neck Neck: Supple, no meningeal sign, No bony TTP - Cardiac Cardiac: RRR, No murmur - Respiratory Respiratory: No respiratory distress, Clear bilaterally - Abdomen Abdomen: Soft, Non tender - Back Back: No CVA TTP, No spinal TTP - Derm Derm: Normal color, Warm and dry, No rash - Extremities Extremities: No deformity, No edema - Neuro Neuro: Alert and oriented X 3, No motor deficit, No sensory deficit, Normal speech Eye Opening: Spontaneous Motor: Obeys Commands Verbal: Oriented GCS Score: 15 - Psych Psych: Normal mood, Normal affect Results - Vitals Vitals: Vital Signs - 24 hr 12/07/17 12/07/17 12/07/17 13:08 13:56 15:58 Temperature 37.1 C 37.5 C Heart Rate 67 65 55 L Respiratory 18 16 13 Rate Blood Pressure 128/68 121/76 125/85 H O2 Saturation 95 99 97 Oxygen O2 Source Room air - EKG (time done) 1316 Rate: Rate (enter#) (68) Rhythm: NSR Other comments: Other comments (EARLY transition) Compare to prior EKG: Unchanged from prior EKG (02-08-17) Computer interpretation: Agree with computer - Labs Labs: Laboratory Tests 12/07/17 12/07/17 12/07/17 14:41 14:41 14:41 WBC 8.0 RBC 4.44 L Hgb 13.6 L Hct 40.9 L MCV 92.3 MCH 30.8 MCHC 33.3 RDW 13.6 Plt Count 221 MPV 7.7 Neut # (Auto) 5.3 Lymph # (Auto) 1.9 [place] # (Auto) 0.5 Eos # (Auto) 0.3 Baso # (Auto) 0.0 Absolute Nucleated RBC 0.00 Nucleated RBC % 0.0 Sodium 134 L Potassium 4.1 Chloride 106 Carbon Dioxide 24 Anion Gap 4.0 L BUN 21 H Creatinine 0.9 Estimated GFR (MDRD) 86 L Glucose 98 Calcium 9.7 Total Bilirubin 0.5 AST 19 ALT 15 Alkaline Phosphatase 58 Troponin I < 0.04 Total Protein 7.8 Albumin 4.5 Globulin 3.3 Albumin/Globulin Ratio 1.4 Lipase 19 L - Rads (name of study) 2 veiw chest Radiology: Prelim report reviewed (Impression: 1. No cardiopulmonary disease seen. 1 cm nodular opacity projects over the left lower lung, could represent a nipple shadow. A pulmonary nodule is not excluded. Repeat chest x-ray with nipple markers could be obtained to confirm this is a nipple shadow and rule out pulmonary nodule.), EMP read indepedently, See rad report Procedures - IVC sono (time) 1500 Bedside IVC sono: IVC measures (cm) (0.87), IVC collapsed c insp (cm) (complete) , Dehydration (est 1-2 liter deficit) PD MEDICAL DECISION MAKING - ED course Complexity details: reviewed old records, reviewed results, re-evaluated patient , considered differential, d/w patient, d/w family ED course: 62-year-old male with a history of coronary artery disease appears to be dehydrated on interrogation of the inferior vena cava. He is having symptoms of left arm pain and has normal-appearing electrocardiogram. He is administered intravenous saline. - Sepsis Event Vital Signs: Vital Signs - 24 hr 12/07/17 12/07/17 12/07/17 13:08 13:56 15:58 Temperature 37.1 C 37.5 C Heart Rate 67 65 55 L Respiratory 18 16 13 Rate Blood Pressure 128/68 121/76 125/85 H O2 Saturation 95 99 97 Oxygen O2 Source Room air Departure - Departure Disposition: 01 Home, Self Care Clinical Impression: Dehydration Condition: Stable Instructions: ED Dehydration Follow-Up: Anabel Mendoza PA-C [Primary Care Provider] -
[2017-12-07 15:03] LABS: BASOPHILS % (AUTO) 0.4 %; EOSINOPHILS # (AUTO) 0.3 10^3/uL (0.0-0.7); EOSINOPHILS % (AUTO) 3.7 %; HGB - HEMOGLOBIN 13.6 g/dL (14.0-18.0); LYMPHOCYTES # (AUTO) 1.9 10^3/uL (1.5-3.5); LYMPHOCYTES % (AUTO) 23.5 %; MEAN CORPUSCULAR HEMOGLOBIN 30.8 pg (27.0-31.0); MEAN CORPUSCULAR HGB CONC 33.3 g/dL (32.0-36.0); MEAN CORPUSCULAR VOLUME 92.3 fL (80.0-94.0); MEAN PLATELET VOLUME 7.7 fL (7.4-11.4); MONOCYTES # (AUTO) 0.5 10^3/uL (0.0-1.0); MONOCYTES % (AUTO) 6.6 %; NEUTROPHILS # (AUTO) 5.3 10^3/uL (1.5-6.6); NEUTROPHILS % (AUTO) 65.8 %; PLT - PLATELET COUNT 221 10^3/uL (130-450); RED BLOOD COUNT 4.44 10^6/uL (4.70-6.10); RED CELL DISTRIBUTION WIDTH 13.6 % (12.0-15.0)
[2017-12-07 15:14] LABS: ALBUMIN 4.5 g/dL (3.2-5.5); ALBUMIN/GLOBULIN RATIO 1.4 (1.0-2.2); BILIRUBIN,TOTAL 0.5 mg/dL (0.2-1.0); CALCIUM 9.7 mg/dL (8.5-10.3); CREATININE 0.9 mg/dL (0.6-1.2); TOTAL PROTEIN 7.8 g/dL (6.7-8.2)
--- NOTE | 2017-12-07 15:27 | XRAY Report ---
Procedure Date: 12/07/2017 Accession Number: [id number] / [id number] Procedure: XR - Chest 2 View X-Ray CPT Code: 01257 FULL RESULT: EXAM: CHEST RADIOGRAPHY EXAM DATE: 12/07/2017 03:17 PM. CLINICAL HISTORY: Shortness of air. COMPARISON: None. TECHNIQUE: 2 views. FINDINGS: Lungs/Pleura: No pleural effusion or pneumothorax. 1 cm nodular opacity projects over the left lower lung, could represent a nipple shadow. A pulmonary nodule is not excluded. A repeat chest x-ray with nipple markers could be obtained to confirm this is a nipple shadow and rule out a pulmonary nodule. No consolidation or airspace disease. Mediastinum: Heart and mediastinal contours are unremarkable. IMPRESSION: 1. No acute cardiopulmonary disease seen. 2. 1 cm nodular opacity projects over the left lower lung, could represent a nipple shadow. A pulmonary nodule is not excluded. A repeat chest x-ray with nipple markers could be obtained to confirm this is a nipple shadow and rule out a pulmonary nodule. RADIA
[2017-12-07 18:08] VITALS: BP 137/80
== END 2017-12-07 18:13 | disposition home or self-care (01) ==
LOC: ED 12:58
DX: E86.0 Dehydration (principal); I25.10 Atherosclerotic heart disease of native coronary artery without angina pectoris; E78.00 Pure hypercholesterolemia, unspecified; G61.0 Guillain-Barre syndrome; Z79.82 Long term (current) use of aspirin
CPT/HCPCS: 36415; 71046; 80053; 83690; 84484; 85025; 93005; 96360; 96361; 99284

== ENCOUNTER 2018-04-13 13:43 | Outpatient (CLI) | payer MEDICARE, MEDICAID ==
[2018-04-13 20:04] LABS: LITHIUM 0.68 mmol/L
[2018-04-13 20:23] LABS: ALBUMIN 4.6 g/dL (3.2-5.5); ALBUMIN/GLOBULIN RATIO 1.6 (1.0-2.2); BILIRUBIN,TOTAL 0.7 mg/dL (0.2-1.0); CALCIUM 9.8 mg/dL (8.5-10.3); CREATININE 0.8 mg/dL (0.6-1.2); TOTAL PROTEIN 7.5 g/dL (6.7-8.2)
== END 2018-04-13 13:44 | disposition home or self-care (01) ==
LOC: LAB.WCP 13:43
PROVIDERS: ATTEND Physician Assistant Medical
DX: I25.10 Atherosclerotic heart disease of native coronary artery without angina pectoris (principal); F31.10 Bipolar disorder, current episode manic without psychotic features, unspecified
CPT/HCPCS: 36415; 80053; 80178

== ENCOUNTER 2018-11-27 08:53 | Outpatient (CLI) | payer MEDICARE, MEDICAID ==
[2018-11-27 12:51] LABS: ALBUMIN 4.4 g/dL (3.2-5.5); ALBUMIN/GLOBULIN RATIO 1.4 (1.0-2.2); ALKALINE PHOSPHATASE 51 IU/L (42-121); ALT ALANINE AMINOTRANSFERASE 17 IU/L (10-60); AST ASPARTATE AMINOTRANSFERASE 20 IU/L (10-42); BILIRUBIN,TOTAL 0.6 mg/dL (0.2-1.0); BUN - BLOOD UREA NITROGEN 22 mg/dL (6-20); CALCIUM 9.8 mg/dL (8.5-10.3); CARBON DIOXIDE - CO2 24 mmol/L (21-32); CHLORIDE 107 mmol/L (101-111); CHOL/HDL RATIO 3.1 (<5.0); CHOLESTEROL 162 mg/dL; CREATININE 0.9 mg/dL (0.6-1.2); GFR - MDRD 86 (>89); GLUCOSE 103 mg/dL (70-100); HDL CHOLESTEROL 53 mg/dL; LDL CHOLESTEROL,CALCULATED 87 mg/dL; LDL/HDL RATIO 1.6 (<3.6); SODIUM 138 mmol/L (135-145); TOTAL PROTEIN 7.5 g/dL (6.7-8.2); VLDL CHOLESTEROL 22 mg/dL
[2018-11-27 12:57] LABS: BASOPHILS % (AUTO) 0.5 %; EOSINOPHILS # (AUTO) 0.3 10^3/uL (0.0-0.7); EOSINOPHILS % (AUTO) 3.9 %; HGB - HEMOGLOBIN 13.3 g/dL (14.0-18.0); LYMPHOCYTES # (AUTO) 2.1 10^3/uL (1.5-3.5); MEAN CORPUSCULAR HEMOGLOBIN 30.5 pg (27.0-31.0); MEAN CORPUSCULAR HGB CONC 33.3 g/dL (32.0-36.0); MEAN CORPUSCULAR VOLUME 91.6 fL (80.0-94.0); MEAN PLATELET VOLUME 8.2 fL (7.4-11.4); MONOCYTES # (AUTO) 0.5 10^3/uL (0.0-1.0); MONOCYTES % (AUTO) 6.2 %; NEUTROPHILS # (AUTO) 5.4 10^3/uL (1.5-6.6); NEUTROPHILS % (AUTO) 64.4 %; PLT - PLATELET COUNT 217 10^3/uL (130-450); RED BLOOD COUNT 4.36 10^6/uL (4.70-6.10); RED CELL DISTRIBUTION WIDTH 13.8 % (12.0-15.0); WHITE BLOOD COUNT 8.3 x10^3/uL (4.8-10.8)
[2018-11-27 13:00] LABS: LITHIUM 0.83 mmol/L
== END 2018-11-27 08:54 | disposition home or self-care (01) ==
LOC: LAB.WCP 08:53
PROVIDERS: ATTEND Physician Assistant Medical
DX: I25.10 Atherosclerotic heart disease of native coronary artery without angina pectoris (principal); F31.9 Bipolar disorder, unspecified; D64.9 Anemia, unspecified
CPT/HCPCS: 36415; 80053; 80061; 80178; 83721; 85025

== ENCOUNTER 2019-03-24 23:30 | Emergency (ER) | payer MEDICARE, MEDICAID ==
--- NOTE | 2019-03-25 01:45 | ED Physician Documentation ---
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 he c/o diffuse body aching c/w his chronic pain but uncontrolled past few days with his usual medications, and this has also resulted in insomnia. Review of Systems Constitutional: reports: Myalgias. denies: Fever, Chills, Fatigue Cardiac: reports: Reviewed and negative Respiratory: reports: Reviewed and negative GI: reports: Reviewed and negative Neurologic: denies: Generalized weakness, Focal weakness, Headache Psychiatric: reports: Insomnia PD PAST MEDICAL HISTORY - Past Medical History Cardiovascular: High cholesterol, Coronary artery disease Respiratory: None Neuro: Other Endocrine/Autoimmune: Other GI: Hemorrhoids : None HEENT: None Psych: Bipolar disorder Musculoskeletal: Osteoarthritis, Chronic back pain Derm: None Other Past Medical History: Guillian [place], Pagets disease; - Past Surgical History Past Surgical History: Yes General: Appendectomy Ortho: Knee replacement, Other - Present Medications Home Medications: Ambulatory Orders Medication Instructions Recorded Confirmed Atorvastatin [Lipitor] 10 mg PO DAILY PM 03/09/17 03/29/17 Clobetasol Propionate/Emoll 1 applic PO TID PRN 03/09/17 03/29/17 [Clobetasol Emollient 0.05% Crm] Cyclobenzaprine [Flexeril] 10 mg PO TID PRN 03/09/17 03/29/17 DULoxetine [Cymbalta] 30 mg PO DAILY PM 03/09/17 03/29/17 [place] Carbonate 1,200 mg PO QPM 03/09/17 03/29/17 Oxycodone HCl [Oxycodone HCl ER] 10 mg PO DAILY PM 03/09/17 03/29/17 Oxycodone HCl [Oxycodone HCl ER] 15 mg PO DAILY 03/09/17 03/29/17 Quetiapine Fumarate [Seroquel] 50 mg PO DAILY PM 03/09/17 03/29/17 Aspirin [Anais] 325 mg PO BIDWM #60 tablet 03/31/17 Atorvastatin [Lipitor] 10 mg PO 2100 tablet 03/31/17 Nitroglycerin [Nitrostat] 0.4 mg SL Q5MIN PRN tablet 03/31/17 Senna [Senokot] 17.2 mg PO Q12H PRN #20 tablet 03/31/17 oxyCODONE/ACET 5/325 [Percocet 5 2 tab PO Q4HR PRN #30 tablet 03/31/17 mg/325 mg] Cyclobenzaprine [Flexeril] 10 mg PO TID PRN #20 tablet 03/25/19 diazePAM [Valium] 5 mg PO QPM PRN #15 tablet 03/25/19 - Allergies Allergies/Adverse Reactions: Allergies Allergy/AdvReac Type Severity Reaction Status Date / Time Penicillins Allergy Severe Respiratory Verified 03/24/19 23:56 gabapentin AdvReac Hallucinati Verified 03/24/19 23:56 ons ibuprofen AdvReac Unknown Verified 03/24/19 23:56 - Social History Does the pt smoke?: No Smoking Status: Never smoker Does the pt drink ETOH?: No Does the pt have substance abuse?: No - Immunizations Immunizations are current?: Yes - POLST Patient has POLST: No PD ED PE NORMAL - Vitals Vital signs reviewed: Yes - General General: Alert and oriented X 3, Well developed/nourished - Cardiac Cardiac: RRR, No murmur - Respiratory Respiratory: No respiratory distress, Clear bilaterally - Extremities Extremities: No tenderness to palpate, Normal ROM s pain, No edema - Neuro Neuro: Alert and oriented X 3, medical transport specialist 2-12 intact, No motor deficit, No sensory deficit, Normal speech Results - Vitals Vitals: Oxygen O2 Source Room air PD MEDICAL DECISION MAKING - ED course Complexity details: considered differential, d/w patient ED course: presents due to chronic pain that is worse past few days, leading to insomnia. He does not have concerning ED visit or rx pattern (MORENITA reviewed). he says fle xril has worked but he is out of this rx. I recommended short course of lorazepam which will hopefully help with his pain as well as insomnia. he says his chronic pain rx was recently reduced. I also provided him with take-home percocet. He did not exhibit any drug-seeking behavior and says he will contact his PMD as soon as the office opens. Departure - Departure Disposition: 01 Home, Self Care Clinical Impression: Chronic pain Qualifiers: Chronic pain type: other chronic pain Qualified Code(s): G89.29 - Other chronic pain Condition: Good Instructions: ED Chronic Pain Management Follow-Up: Anabel Mendoza PA-C [Primary Care Provider] - Prescriptions: Cyclobenzaprine [Flexeril] 10 mg PO TID PRN #20 tablet PRN Reason: Spasms diazePAM [Valium] 5 mg PO QPM PRN #15 tablet PRN Reason: Spasms Discharge Date/Time: 03/25/19 02:45
[2019-03-25] MEDS ORDERED: CYCLOBENZAPRINE 10 MG Prepack 2 PO PRN (02:22)
[2019-03-25] MEDS ORDERED: oxyCODONE/ACET 5/325 Prepack 4 PO STA (02:22)
[2019-03-25 02:44] VITALS: BP 138/85
== END 2019-03-25 02:45 | disposition home or self-care (01) ==
LOC: ED 23:30
DX: G89.29 Other chronic pain (principal)
CPT/HCPCS: 99282; 99284

== ENCOUNTER 2019-03-27 11:38 | Day surgery (SDC) | payer MEDICARE, MEDICAID ==
[2019-03-27] MEDS ORDERED: LACTATED RINGERS 1,000 ML IV ONE (12:08)
[2019-03-27 15:10] VITALS: BP 136/72
== END 2019-03-27 11:39 | disposition home or self-care (01) ==
LOC: SDS 11:38
PROVIDERS: ATTEND Internal Medicine Gastroenterology
PROC: 0DBM8ZZ Excision of Descending Colon, Via Natural or Artificial Opening Endoscopic (ICD-10-PCS; principal; 2019-03-27 13:15)
DX: Z12.11 Encounter for screening for malignant neoplasm of colon (principal); K63.5 Polyp of colon
CPT/HCPCS: 45380; J7120

== ENCOUNTER 2019-04-26 09:33 | Outpatient (CLI) | payer MEDICARE, MEDICAID ==
[2019-04-26 13:23] LABS: ALBUMIN 4.4 g/dL (3.2-5.5); ALBUMIN/GLOBULIN RATIO 1.5 (1.0-2.2); ALKALINE PHOSPHATASE 51 IU/L (42-121); ALT ALANINE AMINOTRANSFERASE 21 IU/L (10-60); AST ASPARTATE AMINOTRANSFERASE 23 IU/L (10-42); BASOPHILS % (AUTO) 0.6 %; BILIRUBIN,TOTAL 0.5 mg/dL (0.2-1.0); BUN - BLOOD UREA NITROGEN 18 mg/dL (6-20); CALCIUM 9.5 mg/dL (8.5-10.3); CARBON DIOXIDE - CO2 24 mmol/L (21-32); CHLORIDE 108 mmol/L (101-111); CREATININE 0.9 mg/dL (0.6-1.2); EOSINOPHILS # (AUTO) 0.3 10^3/uL (0.0-0.7); EOSINOPHILS % (AUTO) 3.8 %; GFR - MDRD 85 (>89); GLUCOSE 115 mg/dL (70-100); HGB - HEMOGLOBIN 12.3 g/dL (14.0-18.0); LYMPHOCYTES # (AUTO) 1.5 10^3/uL (1.5-3.5); LYMPHOCYTES % (AUTO) 22.3 %; MEAN CORPUSCULAR HEMOGLOBIN 29.8 pg (27.0-31.0); MEAN CORPUSCULAR HGB CONC 31.5 g/dL (32.0-36.0); MEAN CORPUSCULAR VOLUME 94.7 fL (80.0-94.0); MEAN PLATELET VOLUME 10.1 fL (7.4-11.4); MONOCYTES # (AUTO) 0.4 10^3/uL (0.0-1.0); MONOCYTES % (AUTO) 5.5 %; NEUTROPHILS # (AUTO) 4.5 10^3/uL (1.5-6.6); NEUTROPHILS % (AUTO) 67.3 %; PLT - PLATELET COUNT 192 10^3/uL (130-450); RED BLOOD COUNT 4.13 10^6/uL (4.70-6.10); RED CELL DISTRIBUTION WIDTH 13.7 % (12.0-15.0); SODIUM 139 mmol/L (135-145); TOTAL PROTEIN 7.4 g/dL (6.7-8.2); WHITE BLOOD COUNT 6.6 x10^3/uL (4.8-10.8)
[2019-04-26 13:39] LABS: CRP - C-REACTIVE PROTEIN < 1.0 mg/dL (0-1.0)
[2019-04-26 14:27] LABS: RHEUMATOID FACTOR NEGATIVE (Negative)
[2019-04-28 15:12] LABS: ANA SCREEN NEGATIVE (NEGATIVE)
== END 2019-04-26 23:59 | disposition home or self-care (01) ==
LOC: LAB.WCP 09:33
PROVIDERS: ATTEND Physician Assistant Medical
DX: M88.9 Osteitis deformans of unspecified bone (principal); Z12.5 Encounter for screening for malignant neoplasm of prostate
CPT/HCPCS: 36415; 80053; 81599; 85025; 85651; 86038; 86140; 86430; G0103; 84075; 84080; 84153

== ENCOUNTER 2019-06-22 14:01 | Emergency (ER) | payer MEDICARE, MEDICAID ==
[2019-06-22 14:09] VITALS: BP 145/125
[2019-06-22] MEDS ORDERED: HYDROmorphone 2 MG/ML VIAL IM STA (15:07)
[2019-06-22] MEDS ORDERED: KETOROLAC 30 MG/ML VIAL IM STA (15:07)
--- NOTE | 2019-06-22 15:09 | ED Physician Documentation ---
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 He states he always has pain in his legs which is managed by a pain specialist, he recently started Horizant as well as he takes oxycodone 10 mg 3 times a day. Today [place] and his pain got worse. He denies any weakness or numbness in his legs. He is on a statin. He denies any abdominal pain, chest pain. No bowel or bladder changes or symptoms. Review of Systems Constitutional: denies: Fever Skin: denies: Rash Musculoskeletal: reports: Extremity pain PD PAST MEDICAL HISTORY - Past Medical History Cardiovascular: High cholesterol, Coronary artery disease Respiratory: None Neuro: Other Endocrine/Autoimmune: Other GI: Hemorrhoids : None HEENT: None Psych: Bipolar disorder Musculoskeletal: Osteoarthritis, Chronic back pain Derm: None - Past Surgical History Past Surgical History: Yes General: Appendectomy Ortho: Knee replacement, Other - Present Medications Home Medications: Ambulatory Orders Medication Instructions Recorded Confirmed DULoxetine [Cymbalta] 30 mg PO DAILY PM 03/09/17 06/22/19 [place] Carbonate 1,200 mg PO QPM 03/09/17 06/22/19 Oxycodone HCl [Oxycodone HCl ER] 10 mg PO TID 03/09/17 03/27/19 Quetiapine Fumarate [Seroquel] 50 mg PO DAILY PM 03/09/17 06/22/19 Aspirin [Anais] 325 mg PO BIDWM #60 tablet 03/31/17 03/27/19 Atorvastatin [Lipitor] 10 mg PO 2100 tablet 03/31/17 06/22/19 Nitroglycerin [Nitrostat] 0.4 mg SL Q5MIN PRN tablet 03/31/17 06/22/19 Cyclobenzaprine [Flexeril] 10 mg PO TID PRN #20 tablet 03/25/19 06/22/19 Gabapentin Enacarbil [Horizant] 300 mg PO BID 06/22/19 06/22/19 oxyCODONE [Roxicodone] 5 mg PO ONCE PRN 2 Days #6 tablet 06/22/19 - Allergies Allergies/Adverse Reactions: Allergies Allergy/AdvReac Type Severity Reaction Status Date / Time Penicillins Allergy Severe Respiratory Verified 06/22/19 14:09 gabapentin AdvReac Hallucinati Verified 06/22/19 14:09 ons ibuprofen AdvReac Unknown Verified 06/22/19 14:09 - Social History Does the pt smoke?: No Smoking Status: Never smoker Does the pt drink ETOH?: No Does the pt have substance abuse?: No - Immunizations Immunizations are current?: Yes - POLST Patient has POLST: No PD ED PE NORMAL - Vitals Vital signs reviewed: Yes - General General: Alert and oriented X 3 - HEENT HEENT: Atraumatic - Cardiac Cardiac: RRR - Respiratory Respiratory: No respiratory distress - Abdomen Abdomen: Non distended - Derm Derm: No rash - Extremities Extremities: No deformity, No tenderness to palpate, Normal ROM s pain, No edema - Neuro Neuro: Alert and oriented X 3, No motor deficit, No sensory deficit, Normal speech, Other (5/5 strength with ankle dorsiflexion and plantarflexion, knee extension and flexion, hip flexion. SILT. 1+ patellar reflexes bilaterally.) - Psych Psych: Normal mood, Normal affect Results - Vitals Vitals: Vital Signs - 24 hr 06/22/19 14:06 Temperature 36.4 C L Heart Rate 82 Respiratory 16 Rate Blood Pressure 145/125 H O2 Saturation 96 Oxygen O2 Source Room air - Labs Labs: Laboratory Tests 06/22/19 15:20 Sodium 137 Potassium 4.1 Chloride 104 Carbon Dioxide 25 Anion Gap 8.0 BUN 25 H Creatinine 1.1 Estimated GFR (MDRD) 68 L Glucose 101 H Calcium 10.2 Total Creatine Kinase 62 PD MEDICAL DECISION MAKING - ED course Complexity details: considered differential (Rhabdomyolysis, myopathy, electrolyte abnormality, neuropathic pain) ED course: Pt is neurologically intact, no signs of DVT, no lower back pain. His CK is normal, making myopathy highly unlikely. Electrolytes are unremarkable. After toradol and hydromorphone pt is feeling improved. This sounds like an exacerbation of his chronic leg pain which is thought to be neuropathic. He is already on many medications for his pain and after discussion with him I provided him a few 5mg oxycodone that he can use to increase his current oxycodone dose with only if needed and only for 2 days while he waits to be seen by his pain specialist. I reviewed return precautions and pt was discharged in good condition, walking without issue. Departure - Departure Disposition: 01 Home, Self Care Clinical Impression: Neuropathic pain Condition: Good Prescriptions: oxyCODONE [Roxicodone] 5 mg PO ONCE PRN 2 Days #6 tablet PRN Reason: Pain Comments: You were seen today for increased pain in your legs. I do not see signs of myopathy, or electrolyte abnormality on your labs. Please follow-up with your pain specialist as we discussed. I am prescribing you a small amount of oxycodone, Try to stick with your current dosing of 10 mg up to 3 times daily as needed for pain, but if your pain is severe you may add an extra 5 mg to this dose. Be careful as narcotics are sedating and is very easy to become tolerant and addicted to them. If you developing new or concerning symptoms such as weakness in your legs or difficulty using the bathroom please return to the emergency department Do not drink alcohol or drive while taking narcotic pain medication. Note that many narcotic pain relievers also contain Tylenol/acetaminophen. Please ensure that your total dose of acetaminophen from all sources does not exceed 3 g (3000 mg) per day. You may get constipated while on this medication. Take a stool softener such as Colace twice a day while you are on it. Also add an [id number] laxative such as senna or MiraLAX on any day that you do not have a bowel movement. If you received a narcotic pain medication or sedative while in the emergency department, do not drive for the next 24 hours. Discharge Date/Time: 06/22/19 16:39
[2019-06-22 15:40] LABS: CALCIUM 10.2 mg/dL (8.5-10.3); CREATININE 1.1 mg/dL (0.6-1.2)
== END 2019-06-22 16:39 | disposition home or self-care (01) ==
LOC: ED 14:01
DX: G62.9 Polyneuropathy, unspecified (principal); G61.0 Guillain-Barre syndrome; Z79.82 Long term (current) use of aspirin
CPT/HCPCS: 36415; 80048; 82550; 96372; 99283; 99284; J1170

== ENCOUNTER 2019-07-26 12:27 | Outpatient (CLI) | payer MEDICARE, MEDICAID ==
[2019-07-26 13:32] LABS: ALBUMIN 4.8 g/dL (3.2-5.5); ALBUMIN/GLOBULIN RATIO 1.5 (1.0-2.2); BILIRUBIN,TOTAL 0.7 mg/dL (0.2-1.0); CALCIUM 9.7 mg/dL (8.5-10.3); TOTAL PROTEIN 7.9 g/dL (6.7-8.2)
== END 2019-07-26 12:28 | disposition home or self-care (01) ==
LOC: LAB 12:27
PROVIDERS: ATTEND Physician Assistant Medical
DX: G64 Other disorders of peripheral nervous system (principal); Z76.89 Persons encountering health services in other specified circumstances
CPT/HCPCS: 36415; 80053; 93005

== ENCOUNTER 2019-09-10 10:29 | Outpatient (CLI) | payer MEDICARE, MEDICAID | END 2019-09-10 10:30 | disposition home or self-care (01) | LOC: RT 10:29 | PROVIDERS: ATTEND Physician Assistant Medical | DX: Z51.81 Encounter for therapeutic drug level monitoring (principal); Z79.891 Long term (current) use of opiate analgesic | CPT/HCPCS: 93005 ==

== ENCOUNTER 2019-12-11 02:45 | Emergency (ER) | payer MEDICARE, MEDICAID ==
[2019-12-11] MEDS ORDERED: KETOROLAC 60 MG/2 ML VIAL IM STA (03:20)
[2019-12-11] MEDS ORDERED: DEXAMETHASONE 10 MG/ML VIAL PO STA (03:21)
[2019-12-11] MEDS ORDERED: CHERRY SYRUP 10 ML UDC PO ONE (03:21)
--- NOTE | 2019-12-11 04:08 | ED Physician Documentation ---
PD HPI UPPER EXT INJURY - Stated complaint Stated Complaint: RT SHOULDER PX - Chief complaint Chief Complaint: Ext Problem - History obtained from History obtained from: Patient - History of Present Illness Location: Right, Shoulder Type of injury: Other (overuse) Where injury occurred: Home Timing - onset: Today Timing - duration: Days (1) Timing - details: Gradual onset, Still present Improved by: Rest, Immobilization Worsened by: Moving, Palpating Associated symptoms: No: Weakness, Numbness, Tingling, Swelling Contributing factors: No: Anticoagulated Similar symptoms before: Diagnosis (pagets disease) Recently seen: Not recently seen - Additonal information Additional information: 64-year-old male with a history of Guyon Dumont syndrome and Paget's disease has developed pain in his right shoulder. He indicates that he did not have any specific injury to the area but has began to ask breasts pain that is sharp in nature like a stabbing right to the back of the shoulder. The pain is severe and increased by movement. The patient does state that he has been outside painting a deck. He is left-handed but uses both hands. He has had some similar pain to this area with Paget's disease of the bone.He is on a pain contract for chronic pain. Review of Systems Constitutional: denies: Fever Eyes: denies: Decreased vision Ears: denies: Ear pain Nose: denies: Congestion Throat: denies: Sore throat Cardiac: denies: Chest pain / pressure, Palpitations Respiratory: denies: Dyspnea, Cough GI: denies: Abdominal Pain, Nausea, Vomiting : denies: Dysuria PD PAST MEDICAL HISTORY - Past Medical History Past Medical History: Yes Cardiovascular: High cholesterol, Coronary artery disease Respiratory: None Neuro: Other Endocrine/Autoimmune: Other GI: Hemorrhoids : None HEENT: None Psych: Bipolar disorder Musculoskeletal: Osteoarthritis, Chronic back pain Derm: None Other Past Medical History: pugets disease - Past Surgical History Past Surgical History: Yes General: Appendectomy Ortho: Knee replacement, Other - Present Medications Home Medications: Ambulatory Orders Medication Instructions Recorded Confirmed DULoxetine [Cymbalta] 30 mg PO DAILY PM 03/09/17 06/22/19 [place] Carbonate 1,200 mg PO QPM 03/09/17 06/22/19 Oxycodone HCl [Oxycodone HCl ER] 10 mg PO TID 03/09/17 03/27/19 Quetiapine Fumarate [Seroquel] 50 mg PO DAILY PM 03/09/17 06/22/19 Aspirin [Anais] 325 mg PO BIDWM #60 tablet 03/31/17 03/27/19 Atorvastatin [Lipitor] 10 mg PO 2100 tablet 03/31/17 06/22/19 Nitroglycerin [Nitrostat] 0.4 mg SL Q5MIN PRN tablet 03/31/17 06/22/19 Cyclobenzaprine [Flexeril] 10 mg PO TID PRN #20 tablet 03/25/19 06/22/19 Gabapentin Enacarbil [Horizant] 300 mg PO BID 06/22/19 06/22/19 oxyCODONE [Roxicodone] 5 mg PO ONCE PRN 2 Days #6 tablet 06/22/19 - Allergies Allergies/Adverse Reactions: Allergies Allergy/AdvReac Type Severity Reaction Status Date / Time Penicillins Allergy Severe Respiratory Verified 06/22/19 14:09 gabapentin AdvReac Hallucinati Verified 06/22/19 14:09 ons ibuprofen AdvReac Unknown Verified 06/22/19 14:09 - Social History Does the pt smoke?: No Smoking Status: Never smoker Does the pt drink ETOH?: No Does the pt have substance abuse?: No - Immunizations Immunizations are current?: Yes - POLST Patient has POLST: No PD ED PE NORMAL - Vitals Vital signs reviewed: Yes (hypertensive ) - General General: Alert and oriented X 3, No acute distress, Well developed/nourished - HEENT HEENT: Atraumatic, PERRL, EOMI - Neck Neck: Supple, no meningeal sign, No bony TTP - Respiratory Respiratory: No respiratory distress - Derm Derm: Normal color, Warm and dry, No rash - Extremities Extremities: No deformity, No edema, Other (The patient has pain to palpation specifically under the acromion posteriorly. He is able to move the shoulder in a ROM with pain ) - Neuro Neuro: Alert and oriented X 3, advertising associate 2-12 intact, No motor deficit, No sensory deficit, Normal speech Eye Opening: Spontaneous Motor: Obeys Commands Verbal: Oriented GCS Score: 15 - Psych Psych: Normal mood, Normal affect Results - Vitals Vitals: Vital Signs - 24 hr 12/11/19 02:55 Temperature 36.6 C Heart Rate 88 Respiratory 18 Rate Blood Pressure 162/80 H O2 Saturation 95 Oxygen O2 Source Room air - Rads (name of study) shoulder Radiology: Prelim report reviewed (Impression: 1. Subchondral sclerosis increase in humeral head could be secondary to history of Paget's disease, but avascular necrosis is not ruled out, an MRI might be considered. 2. Mild osteoarthritic changes of the joints again noted.), EMP read indepedently, See rad report PD MEDICAL DECISION MAKING - ED course Complexity details: reviewed results, re-evaluated patient, considered differential, d/w patient ED course: 64-year-old male with right shoulder pain that is sharp related to movement and palpable at the tip of the acromion underneath the acromion consistent with bursitis. He is administered dexamethasone 10 mg orally and Toradol 60 mg IM. Departure - Departure Disposition: 01 Home, Self Care Clinical Impression: Bursitis Qualifiers: Bursitis location: shoulder Laterality: right Qualified Code(s): M75.51 - Bur sitis of right shoulder Condition: Stable Instructions: ED Bursitis Follow-Up: Anabel Mendoza PA-C [Primary Care Provider] - Comments: The x-ray of your shoulder is consistent with Paget disease and with avascular necrosis. An MRI could help to differentiate.
[2019-12-11 05:05] VITALS: BP 154/86
--- NOTE | 2019-12-11 08:41 | XRAY Report ---
PROCEDURE: Shoulder 3 View RT INDICATIONS: severe shoulder pain hx/o pagets TECHNIQUE: 3 views of the shoulder were acquired. COMPARISON: 01/08/2016 FINDINGS: Bones: No acute fractures or dislocations. There is increased conspicuity/thickening of the trabecu lation of the humeral head slightly more pronounced and comparison study. Subchondral sclerosis of th e humeral head is also present. Degenerative changes of the acromioclavicular and glenohumeral joints . Coracoclavicular and acromioclavicular intervals are maintained. No suspicious bony lesions. Visua lized ribs appear intact. Soft tissues: No suspicious soft tissue calcifications. IMPRESSION: 1. Right shoulder without acute fracture or dislocation. 2. Degenerative changes of the glenohumeral and acromioclavicular joints. 3. Increased subchondral sclerosis and prominent trabeculation of the humeral head possibly related t o history of Paget's disease. However, avascular necrosis is not completely excluded. If there is per sistent clinical concern, consider outpatient MRI for further evaluation. No significant discrepancy with initial interpretation by overnight radiologist. Reviewed by: Dillon Steward MD on 12/11/2019 8:40 AM PDT Approved by: Dillon Steward MD on 12/11/2019 8:40 AM PDT Station ID: [id number]
== END 2019-12-11 05:04 | disposition home or self-care (01) ==
LOC: ED 02:45
DX: M75.51 Bursitis of right shoulder (principal); M19.011 Primary osteoarthritis, right shoulder; M88.9 Osteitis deformans of unspecified bone; G61.0 Guillain-Barre syndrome
CPT/HCPCS: 73030; 96372; 99283; 99284; A9270

== ENCOUNTER 2019-12-18 22:05 | Emergency (ER) | payer MEDICARE, MEDICAID ==
--- NOTE | 2019-12-18 23:38 | ED Physician Documentation ---
PD HPI ALTERED MENTAL STATUS - Stated complaint Stated Complaint: CONFUSION/MED INGESTION - Chief complaint Chief Complaint: General - History obtained from History obtained from: Patient - History of Present Illness Timing - onset: Today (Pt. reports after gardening at about 1630 came into his house and just didn't feel right mentally. Confused about surroundings. Pt. takes methadone for pain and thought he might have OD'd so he took Narcan which helped. Still feels a little off. Would like eval.) Timing - duration: Hours Timing - details: Gradual onset, Still present Quality / character: Confused, Other (feeling lightheaded) Associated symptoms: General weakness. No: Fever, Headache, Dyspnea, Cough, Focal weakness Contributing factors: Recent med change (he ran out of his Flexeril 4 days ago and has not gotten the refill from PCP as yet.), Other (he states was gardening for several hours, then went to move some rocks (large 80 lb ones). Went back into house and was feeling lightheaded and confused. No headache.). No: Diabetic, Recent illness, Recent injury, Intoxicated Basline status: Alert and oriented X 3, Ambulatory Similar symptoms before: Has not had sx before Recently seen: Not recently seen Review of Systems Constitutional: denies: Fever, Chills Nose: denies: Rhinorrhea / runny nose, Congestion Throat: denies: Sore throat Respiratory: denies: Cough GI: denies: Abdominal Pain, Nausea, Vomiting, Diarrhea Skin: denies: Rash, Lesions Neurologic: reports: Confused, Altered mental status (sleepy). denies: Generalized weakness, Near syncope, Headache, Head injury Psychiatric: reports: Anxiety. denies: Depressed, Insomnia PD PAST MEDICAL HISTORY - Past Medical History Cardiovascular: High cholesterol, Coronary artery disease Respiratory: None Neuro: Other Endocrine/Autoimmune: Other GI: Hemorrhoids : None HEENT: None Psych: Bipolar disorder Musculoskeletal: Osteoarthritis, Chronic back pain Derm: None - Past Surgical History Past Surgical History: Yes General: Appendectomy Ortho: Knee replacement, Other - Present Medications Home Medications: Ambulatory Orders Medication Instructions Recorded Confirmed DULoxetine [Cymbalta] 30 mg PO DAILY PM 03/09/17 06/22/19 [place] Carbonate 1,200 mg PO QPM 03/09/17 06/22/19 Oxycodone HCl [Oxycodone HCl ER] 10 mg PO TID 03/09/17 03/27/19 Quetiapine Fumarate [Seroquel] 50 mg PO DAILY PM 03/09/17 06/22/19 Aspirin [Anais] 325 mg PO BIDWM #60 tablet 03/31/17 03/27/19 Atorvastatin [Lipitor] 10 mg PO 2100 tablet 03/31/17 06/22/19 Nitroglycerin [Nitrostat] 0.4 mg SL Q5MIN PRN tablet 03/31/17 06/22/19 Cyclobenzaprine [Flexeril] 10 mg PO TID PRN #20 tablet 03/25/19 06/22/19 Gabapentin Enacarbil [Horizant] 300 mg PO BID 06/22/19 06/22/19 oxyCODONE [Roxicodone] 5 mg PO ONCE PRN 2 Days #6 tablet 06/22/19 Cyclobenzaprine [Flexeril] 10 mg PO TID PRN #15 tablet 12/19/19 - Allergies Allergies/Adverse Reactions: Allergies Allergy/AdvReac Type Severity Reaction Status Date / Time Penicillins Allergy Severe Respiratory Verified 12/18/19 22:12 gabapentin AdvReac Hallucinati Verified 12/18/19 22:12 ons ibuprofen AdvReac Unknown Verified 12/18/19 22:12 - Social History Does the pt smoke?: No Smoking Status: Never smoker Does the pt drink ETOH?: No Does the pt have substance abuse?: No - Immunizations Immunizations are current?: Yes - POLST Patient has POLST: No PD ED PE NORMAL - Vitals Vital signs reviewed: Yes - General General: Alert and oriented X 3, No acute distress, Well developed/nourished - HEENT HEENT: Pharynx benign. No: Moist mucous membranes - Neck Neck: Supple, no meningeal sign, No adenopathy - Cardiac Cardiac: RRR, No murmur - Respiratory Respiratory: Clear bilaterally - Abdomen Abdomen: Soft, Non tender - Back Back: No CVA TTP - Derm Derm: Normal color, Warm and dry - Extremities Extremities: Normal ROM s pain, No edema, No calf tenderness / cord - Neuro Neuro: Alert and oriented X 3, breaker tender 2-12 intact, No motor deficit, No sensory deficit, Normal speech, Other Eye Opening: Spontaneous Motor: Obeys Commands Verbal: Oriented GCS Score: 15 - Psych Psych: Normal mood Results - Vitals Vitals: Vital Signs - 24 hr 12/18/19 12/18/19 12/19/19 22:12 23:40 00:50 Temperature 36.6 C Heart Rate 84 72 96 Respiratory 16 16 14 Rate Blood Pressure 185/98 H 148/75 H 142/68 H O2 Saturation 100 97 98 Oxygen O2 Source Room air - Labs Labs: Laboratory Tests 12/18/19 12/18/19 12/18/19 23:55 23:55 23:55 WBC 13.8 H RBC 4.14 L Hgb 12.8 L Hct 38.6 L MCV 93.2 MCH 30.9 MCHC 33.2 RDW 13.0 Plt Count 219 MPV 9.2 Neut # (Auto) 11.9 H Lymph # (Auto) 1.2 L [place] # (Auto) 0.5 Eos # (Auto) 0.1 Baso # (Auto) 0.1 Absolute Nucleated RBC 0.00 Nucleated RBC % 0.0 Sodium 136 Potassium 3.8 Chloride 106 Carbon Dioxide 22 Anion Gap 8.0 BUN 21 H Creatinine 0.9 Estimated GFR (MDRD) 85 L Glucose 113 H Calcium 9.6 Magnesium 2.1 Total Bilirubin 0.3 AST 23 ALT 20 Alkaline Phosphatase 54 Total Creatine Kinase 141 Total Protein 7.8 Albumin 4.5 Globulin 3.3 Albumin/Globulin Ratio 1.4 Lipase 28 TSH Last Dose Date UNKNOWN Last Dose Time UNKNOWN [place] 0.63 12/18/19 23:55 WBC RBC Hgb Hct MCV MCH MCHC RDW Plt Count MPV Neut # (Auto) Lymph # (Auto) [place] # (Auto) Eos # (Auto) Baso # (Auto) Absolute Nucleated RBC Nucleated RBC % Sodium Potassium Chloride Carbon Dioxide Anion Gap BUN Creatinine Estimated GFR (MDRD) Glucose Calcium Magnesium Total Bilirubin AST ALT Alkaline Phosphatase Total Creatine Kinase Total Protein Albumin Globulin Albumin/Globulin Ratio Lipase TSH 1.24 Last Dose Date Last Dose Time [place] PD MEDICAL DECISION MAKING - ED course Complexity details: reviewed results (lytes, sodium and lithium levels are good, so not a factor in his symptoms. ), considered differential (He had been working out vigorously doing outdoor work and also moving some rocks. He states he had not hydrated as well as usual. This may have enhance the effect of some of his medicines. He had also run out of his Flexeril several days ago and may have some withdrawal type symptoms from that.), d/w patient ED course: I did look up on medical reference that there can be a discontinuation syndrome from the Flexeril with some lightheadedness or confusion. This may be part of his symptoms. Departure - Departure Disposition: 01 Home, Self Care Clinical Impression: Altered mental status Qualifiers: Altered mental status type: disorientation Qualified Code(s): R41.0 - Disorientation, unspecified Medication withdrawal Qualifiers: Substance type: other psychoactive substance Qualified Code(s): F19.939 - Other psychoactive substance use, unspecified with withdrawal, unspecified Condition: Stable Record reviewed to determine appropriate education?: Yes Instructions: ED Confusion Follow-Up: Anabel Mendoza PA-C [Primary Care Provider] - Prescriptions: Cyclobenzaprine [Flexeril] 10 mg PO TID PRN #15 tablet PRN Reason: Spasms Comments: Your symptoms may have come from a more enhanced effect of your medications due to under hydration through the day. I referenced Flexeril discontinuation or withdrawal and there is a "discontinuation syndrome" that may have accounted for your symptoms to since you had run out of your Flexeril. I wrote a prescription for the Flexeril to take at your usual doses. Stay well- hydrated. Continue your other usual medicines. If there is an alternate cause for your symptoms other than those above, then further symptoms may develop. Recheck if you have other symptoms develop such as nausea vomiting diarrhea, fevers, headache, other concerns. Discharge Date/Time: 12/19/19 01:20
[2019-12-18] MEDS ORDERED: CYCLOBENZAPRINE 10 MG TABLET PO STA (23:54)
[2019-12-18] MEDS ORDERED: ACETAMINOPHEN 325 MG TABLET PO STA (23:54)
[2019-12-19 00:15] LABS: BASOPHILS # (AUTO) 0.1 10^3/uL (0.0-0.1); BASOPHILS % (AUTO) 0.4 %; EOSINOPHILS # (AUTO) 0.1 10^3/uL (0.0-0.7); EOSINOPHILS % (AUTO) 0.9 %; HGB - HEMOGLOBIN 12.8 g/dL (14.0-18.0); LYMPHOCYTES # (AUTO) 1.2 10^3/uL (1.5-3.5); LYMPHOCYTES % (AUTO) 8.6 %; MEAN CORPUSCULAR HEMOGLOBIN 30.9 pg (27.0-31.0); MEAN CORPUSCULAR HGB CONC 33.2 g/dL (32.0-36.0); MEAN CORPUSCULAR VOLUME 93.2 fL (80.0-94.0); MEAN PLATELET VOLUME 9.2 fL (7.4-11.4); MONOCYTES # (AUTO) 0.5 10^3/uL (0.0-1.0); MONOCYTES % (AUTO) 3.5 %; NEUTROPHILS # (AUTO) 11.9 10^3/uL (1.5-6.6); PLT - PLATELET COUNT 219 10^3/uL (130-450); RED BLOOD COUNT 4.14 10^6/uL (4.70-6.10); WHITE BLOOD COUNT 13.8 x10^3/uL (4.8-10.8)
[2019-12-19 00:28] LABS: ALBUMIN 4.5 g/dL (3.2-5.5); ALBUMIN/GLOBULIN RATIO 1.4 (1.0-2.2); BILIRUBIN,TOTAL 0.3 mg/dL (0.2-1.0); CALCIUM 9.6 mg/dL (8.5-10.3); CREATININE 0.9 mg/dL (0.6-1.2); MAGNESIUM 2.1 mg/dL (1.7-2.8); TOTAL PROTEIN 7.8 g/dL (6.7-8.2)
[2019-12-19 00:47] LABS: LITHIUM 0.63 mmol/L
[2019-12-19 00:59] VITALS: BP 142/68
== END 2019-12-19 01:20 | disposition home or self-care (01) ==
LOC: ED 22:05
DX: R41.0 Disorientation, unspecified (principal); R42 Dizziness and giddiness; X50.9XXA Other and unspecified overexertion or strenuous movements or postures, initial encounter; Y93.H2 Activity, gardening and landscaping; Y92.007 Garden or yard of unspecified non-institutional (private) residence as the place of occurrence of the external cause; T48.1X6A Underdosing of skeletal muscle relaxants [neuromuscular blocking agents], initial encounter; Z76.0 Encounter for issue of repeat prescription
CPT/HCPCS: 36415; 80053; 80178; 82550; 83690; 83735; 84443; 85025; 99283; 99284; A9270

== ENCOUNTER 2019-12-27 15:45 | Outpatient (CLI) | payer MEDICARE, MEDICAID ==
[2019-12-27 19:00] LABS: BUN - BLOOD UREA NITROGEN 22 mg/dL (6-20); CARBON DIOXIDE - CO2 25 mmol/L (21-32); CHLORIDE 103 mmol/L (101-111); CHOL/HDL RATIO 3.6 (<5.0); CHOLESTEROL 172 mg/dL; GLUCOSE 88 mg/dL (70-100); HDL CHOLESTEROL 48 mg/dL; LDL CHOLESTEROL,CALCULATED 104 mg/dL; LDL/HDL RATIO 2.2 (<3.6); SODIUM 139 mmol/L (135-145); VLDL CHOLESTEROL 20 mg/dL
== END 2019-12-27 23:59 | disposition home or self-care (01) ==
LOC: LAB.WCP 15:45
PROVIDERS: ATTEND Physician Assistant Medical
DX: E78.5 Hyperlipidemia, unspecified (principal)
CPT/HCPCS: 36415; 80048; 80061; 83721

== ENCOUNTER 2020-01-07 15:45 | Emergency (ER) | payer MEDICARE, MEDICAID ==
--- NOTE | 2020-01-07 16:04 | ED Physician Documentation ---
History of Present Illness - Stated complaint Stated Complaint: DIZZY - Chief complaint Chief Complaint: General - History obtained from History obtained from: Patient - Additonal information Additional information: 64-year-old gentleman with history of remote Guillan Dumont syndrome, Paget's disease of bone, and bipolar disorder on chronic lithium and methadone presents with recurrent near syncope over the last few weeks. He was seen here in the first visit, presumed potentially having been related to running out of Flexeril. Subsequent to that he is been back on his Flexeril so we know that is not the cause. It happens about every other day, he becomes presyncopal. Sometimes it happens at rest, sometimes it happens with activity. There does not seem to be a specific trigger to ice. It is not associate with leg swelling, calf pain, chest pain, shortness of breath. He does get severe headaches with it which is not his baseline. Review of Systems Constitutional: denies: Fever, Chills, Fatigue Nose: denies: Rhinorrhea / runny nose, Congestion Cardiac: denies: Chest pain / pressure, Palpitations Respiratory: denies: Dyspnea, Cough GI: denies: Abdominal Pain, Nausea, Vomiting, Diarrhea, Bloody / black stool Musculoskeletal: denies: Neck pain, Back pain PD PAST MEDICAL HISTORY - Past Medical History Cardiovascular: High cholesterol, Coronary artery disease Respiratory: None Neuro: Other Endocrine/Autoimmune: Other GI: Hemorrhoids : None HEENT: None Psych: Bipolar disorder Musculoskeletal: Osteoarthritis, Chronic back pain Derm: None - Past Surgical History Past Surgical History: Yes General: Appendectomy Ortho: Knee replacement, Other - Present Medications Home Medications: Ambulatory Orders Medication Instructions Recorded Confirmed DULoxetine [Cymbalta] 30 mg PO DAILY PM 03/09/17 06/22/19 [place] Carbonate 1,200 mg PO QPM 03/09/17 06/22/19 Oxycodone HCl [Oxycodone HCl ER] 10 mg PO TID 03/09/17 03/27/19 Quetiapine Fumarate [Seroquel] 50 mg PO DAILY PM 03/09/17 06/22/19 Aspirin [Anais] 325 mg PO BIDWM #60 tablet 03/31/17 03/27/19 Atorvastatin [Lipitor] 10 mg PO 2100 tablet 03/31/17 06/22/19 Nitroglycerin [Nitrostat] 0.4 mg SL Q5MIN PRN tablet 03/31/17 06/22/19 Cyclobenzaprine [Flexeril] 10 mg PO TID PRN #20 tablet 03/25/19 06/22/19 Gabapentin Enacarbil [Horizant] 300 mg PO BID 06/22/19 06/22/19 oxyCODONE [Roxicodone] 5 mg PO ONCE PRN 2 Days #6 tablet 06/22/19 Cyclobenzaprine [Flexeril] 10 mg PO TID PRN #15 tablet 12/19/19 - Allergies Allergies/Adverse Reactions: Allergies Allergy/AdvReac Type Severity Reaction Status Date / Time Penicillins Allergy Severe Respiratory Verified 01/07/20 15:47 gabapentin AdvReac Hallucinati Verified 01/07/20 15:47 ons ibuprofen AdvReac Unknown Verified 01/07/20 15:47 - Social History Does the pt smoke?: No Smoking Status: Never smoker Does the pt drink ETOH?: No Does the pt have substance abuse?: No - Family History Family history: reports: Non contributory - Immunizations Immunizations are current?: Yes - POLST Patient has POLST: No PD ED PE NORMAL - Vitals Vital signs reviewed: Yes - General General: Alert and oriented X 3, No acute distress - HEENT HEENT: PERRL, EOMI - Neck Neck: Supple, no meningeal sign, No bony TTP - Cardiac Cardiac: RRR, No murmur - Respiratory Respiratory: No respiratory distress, Clear bilaterally - Abdomen Abdomen: Non tender - Back Back: No CVA TTP, No spinal TTP - Derm Derm: Normal color, Warm and dry - Extremities Extremities: No edema, No calf tenderness / cord - Neuro Neuro: Alert and oriented X 3, Normal speech Results - Vitals Vitals: Vital Signs - 24 hr 01/07/20 01/07/20 01/07/20 15:47 16:19 17:02 Temperature 36.5 C Heart Rate 60 62 Heart Rate [ 70 Sitting] Heart Rate [ 67 Standing] Heart Rate [ 61 Supine] Respiratory 16 14 Rate Blood Pressure 141/73 H 134/82 H Blood Pressure 129/82 H [Sitting] Blood Pressure 132/83 H [Standing] Blood Pressure 128/73 [Supine] O2 Saturation 96 98 Oxygen O2 Source Room air - EKG (time done) 1515 Rate: Rate (enter#) (58) Rhythm: NSR Counselor: Normal Intervals: Normal SC QRS: Normal Ischemia: Other (abn R wave progression) Compare to prior EKG: Unchanged from prior EKG (comp with 09/10/19) - Labs Labs: Laboratory Tests 01/07/20 01/07/20 01/07/20 16:03 16:03 16:03 WBC 9.0 RBC 4.16 L Hgb 12.8 L Hct 38.5 L MCV 92.5 MCH 30.8 MCHC 33.2 RDW 13.1 Plt Count 209 MPV 9.2 Neut # (Auto) 6.4 Lymph # (Auto) 1.8 [place] # (Auto) 0.5 Eos # (Auto) 0.3 Baso # (Auto) 0.0 Absolute Nucleated RBC 0.00 Nucleated RBC % 0.0 Sodium 137 Potassium 3.9 Chloride 104 Carbon Dioxide 24 Anion Gap 9.0 BUN 19 Creatinine 1.1 Estimated GFR (MDRD) 68 L Glucose 106 H Calcium 9.8 Total Bilirubin 0.5 AST 22 ALT 20 Alkaline Phosphatase 52 Total Protein 7.6 Albumin 4.5 Globulin 3.1 Albumin/Globulin Ratio 1.5 Lipase 28 Last Dose Date UNKNOWN Last Dose Time UNKNOWN [place] 0.73 Ethyl Alcohol < 5.0 - Rads (name of study) CT Head Radiology: EMP read contemporaneously (NAD) PD MEDICAL DECISION MAKING - ED course ED course: 64-year-old gentleman with episodic presyncopal episodes without syncope for the last couple of weeks associated with headaches. No physical findings here and his work-up was without pertinent positive findings except for very mild chronic anemia without change. He has negative orthostatics. Departure - Departure Disposition: 01 Home, Self Care Clinical Impression: Dizziness Condition: Good Record reviewed to determine appropriate education?: Yes Instructions: ED Dizziness UKO Comments: The cause of your dizzy episodes was not identified today. We did a CT of the head which was normal, blood work which was basically normal except for very mild anemia with a hemoglobin of 12.8, not significantly different than prior values. Your lithium level was therapeutic. I do think you need further testing, especially consideration of echocardio graphy. Please discuss with with your doctor tomorrow. Return for new or worsening symptoms.
[2020-01-07 16:12] LABS: BASOPHILS % (AUTO) 0.4 %; EOSINOPHILS # (AUTO) 0.3 10^3/uL (0.0-0.7); EOSINOPHILS % (AUTO) 2.9 %; HGB - HEMOGLOBIN 12.8 g/dL (14.0-18.0); LYMPHOCYTES # (AUTO) 1.8 10^3/uL (1.5-3.5); LYMPHOCYTES % (AUTO) 19.5 %; MEAN CORPUSCULAR HEMOGLOBIN 30.8 pg (27.0-31.0); MEAN CORPUSCULAR HGB CONC 33.2 g/dL (32.0-36.0); MEAN CORPUSCULAR VOLUME 92.5 fL (80.0-94.0); MEAN PLATELET VOLUME 9.2 fL (7.4-11.4); MONOCYTES # (AUTO) 0.5 10^3/uL (0.0-1.0); MONOCYTES % (AUTO) 5.5 %; NEUTROPHILS # (AUTO) 6.4 10^3/uL (1.5-6.6); NEUTROPHILS % (AUTO) 71.3 %; PLT - PLATELET COUNT 209 10^3/uL (130-450); RED BLOOD COUNT 4.16 10^6/uL (4.70-6.10); RED CELL DISTRIBUTION WIDTH 13.1 % (12.0-15.0)
[2020-01-07 16:23] LABS: ALBUMIN 4.5 g/dL (3.2-5.5); ALBUMIN/GLOBULIN RATIO 1.5 (1.0-2.2); ALKALINE PHOSPHATASE 52 IU/L (42-121); ALT ALANINE AMINOTRANSFERASE 20 IU/L (10-60); AST ASPARTATE AMINOTRANSFERASE 22 IU/L (10-42); BILIRUBIN,TOTAL 0.5 mg/dL (0.2-1.0); BUN - BLOOD UREA NITROGEN 19 mg/dL (6-20); CALCIUM 9.8 mg/dL (8.5-10.3); CARBON DIOXIDE - CO2 24 mmol/L (21-32); CHLORIDE 104 mmol/L (101-111); CREATININE 1.1 mg/dL (0.6-1.2); GLUCOSE 106 mg/dL (70-100); LIPASE 28 U/L (22-51); SODIUM 137 mmol/L (135-145); TOTAL PROTEIN 7.6 g/dL (6.7-8.2)
--- NOTE | 2020-01-07 16:25 | CT Report ---
PROCEDURE: HEAD WO INDICATIONS: headache, near syncope TECHNIQUE: Noncontrast 4.5 mm thick angled axial sections acquired from the foramen magnum to the vertex. For r adiation dose reduction, the following was used: automated exposure control, adjustment of mA and/or kV according to patient size. COMPARISON: None. FINDINGS: Image quality: Excellent. CSF spaces: Basal cisterns are patent. No extra-axial fluid collections. Ventricles are normal in size and shape. Brain: No midline shift. No intracranial masses or hemorrhage. Frank-white matter interface is norm al. Skull and face: Calvarium and visualized facial bones are intact, without suspicious lesions. Sinuses: Visualized sinuses and mastoids are clear. IMPRESSION: No acute intracranial abnormality. Reviewed by: Vandana Hurtado MD on 01/07/2020 4:23 PM PDT Approved by: Vandana Hurtado MD on 01/07/2020 4:23 PM PDT Station ID: [id number]
[2020-01-07 16:52] LABS: LITHIUM 0.73 mmol/L
[2020-01-07 17:02] VITALS: BP 128/73
[2020-01-07 17:12] LABS: MUDS CUTOFF CONCENTRATIONS CUTOFF CONC BELOW:
[2020-01-07 17:28] LABS: AMPHETAMINE SCREEN,URINE NEGATIVE (NEGATIVE); BENZODIAZEPINES SCREEN, URINE NEGATIVE (NEGATIVE); COCAINE SCREEN URINE NEGATIVE (NEGATIVE); METHADONE SCREEN, URINE POSITIVE (NEGATIVE); METHAMPHETAMINES SCREEN, URINE NEGATIVE (NEGATIVE); OPIATE SCREEN, URINE NEGATIVE (NEGATIVE); OXYCODONE SCREEN, URINE NEGATIVE (NEGATIVE); PROPOXYPHENE SCREEN, URINE NEGATIVE (NEGATIVE); TRICYCLIC ANTIDEPRESSANT,URINE NEGATIVE (NEGATIVE)
== END 2020-01-07 17:12 | disposition home or self-care (01) ==
LOC: ED 15:45
DX: R42 Dizziness and giddiness (principal); R55 Syncope and collapse; R51 Headache; D64.9 Anemia, unspecified; F31.9 Bipolar disorder, unspecified; Z79.899 Other long term (current) drug therapy; Z79.82 Long term (current) use of aspirin
CPT/HCPCS: 36415; 70450; 80053; 80178; 80306; 80320; 83690; 85025; 93005; 99284

== ENCOUNTER 2020-01-23 13:09 | Outpatient (CLI) | payer MEDICARE, MEDICAID ==
--- NOTE | 2020-01-23 14:44 | Ultrasound Report ---
PROCEDURE: Carotid Doppler Complete INDICATIONS: DIZZINESS TECHNIQUE: Color and pulse Doppler interrogation was performed of both carotid systems, with image documentation and velocity measurements. COMPARISON: None. FINDINGS: Right side: Common carotid artery peak systolic velocity: 129 cm/sec. Internal carotid artery peak systolic velocity: 71 cm/sec. Internal carotid artery end diastolic velocity: 27 cm/sec. External carotid artery peak systolic velocity: 55 cm/sec. ICA/CCA peak systolic ratio: 0.5 Frank scale imaging description: No plaque Percent internal carotid artery stenosis: None . Vertebral artery: Flow direction is antegrade. Left side: Common carotid artery peak systolic velocity: 125 cm/sec. Internal carotid artery peak systolic velocity: 57 cm/sec. Internal carotid artery end diastolic velocity: 21 cm/sec. External carotid artery peak systolic velocity: 70 cm/sec. ICA/CCA peak systolic ratio: 0.5 . Frank scale imaging description: No plaque Percent internal carotid artery stenosis: No . Vertebral artery: Flow direction is antegrade. IMPRESSION: No hemodynamically significant (>50% diameter) ICA stenosis. The estimate of stenosis included in the report of the imaging study was calculated using the NASCET method Reviewed by: Jan De La Rosa MD on 01/23/2020 2:43 PM PDT Approved by: Jan De La Rosa MD on 01/23/2020 2:43 PM PDT Station ID: [id number]
--- NOTE | 2020-01-23 14:58 | MRI Report ---
PROCEDURE: Shoulder RT W/O INDICATIONS: DIZZINESS TECHNIQUE: Noncontrast oblique coronal T2 fast spin echo with fat saturation, oblique sagittal T1 spin echo and T2 fast spin echo with fat saturation, axial T1 spin echo and T2 fast spin echo with fat saturation t hrough the shoulder. COMPARISON: None. FINDINGS: Image quality: Excellent. Rotator cuff: Supraspinatus tendinopathy and low-grade articular and bursal surface fraying. There is also infraspi natus tendinopathy. Teres minor appears intact. Subscapularis demonstrates tendinopathy and thickenin g, without discrete tear. No definite atrophy of the rotator cuff muscles. Bones and bursae: No bone marrow contusions or fractures. Moderate hypertrophic acromioclavicular joint degeneration. Glenohumeral osteoarthritis. Prominent s ubchondral cystic changes. The acromion demonstrates conventional anatomy, without an os acromiale. Mild subacromial/subdeltoid bursal fluid is present. Capsule and soft tissues: Labrum: Circumferential fraying of the labrum, probably age appropriate.. The long head of the biceps tendon demonstrates normal location and morphology. The rotator interval appears normal, without fibrosis. The coracohumeral ligament is normal in thickness. IMPRESSION: Supraspinatus tendinopathy and low-grade articular and bursal surface fraying. Infraspinatus tendinopathy Mild subacromial-subdeltoid bursitis Circumferential fraying of the labrum which is chronic and probably age appropriate. Right shoulder osteoarthritis as above Reviewed by: Jan De La Rosa MD on 01/23/2020 2:57 PM PDT Approved by: Jan De La Rosa MD on 01/23/2020 2:57 PM PDT Station ID: [id number]
== END 2020-01-23 13:10 | disposition home or self-care (01) ==
LOC: DI 13:09
PROVIDERS: ATTEND Physician Assistant Medical
DX: R42 Dizziness and giddiness (principal); M88.811 Osteitis deformans of right shoulder; M19.011 Primary osteoarthritis, right shoulder; M75.51 Bursitis of right shoulder; M75.81 Other shoulder lesions, right shoulder
CPT/HCPCS: 93880

== ENCOUNTER 2020-04-22 03:28 | Emergency (ER) | payer MEDICARE, MEDICAID ==
[2020-04-22] MEDS ORDERED: KETOROLAC 60 MG/2 ML VIAL IM STA (03:58)
--- NOTE | 2020-04-22 04:02 | ED Physician Documentation ---
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 denies leg swelling, erythema, fevers or fnd/sensorineural deficits. ambulatory without difficulty. states he has been unable to sleep the past few nights. Review of Systems Ten Systems: 10 systems reviewed and negative Constitutional: denies: Fever, Chills Musculoskeletal: reports: Extremity pain Neurologic: denies: Focal weakness, Numbness PD PAST MEDICAL HISTORY - Past Medical History Cardiovascular: High cholesterol, Coronary artery disease Respiratory: None Neuro: Other Endocrine/Autoimmune: Other GI: Hemorrhoids : None HEENT: None Psych: Bipolar disorder Musculoskeletal: Osteoarthritis, Chronic back pain Derm: None Other Past Medical History: Gullian-Groesbeck - Past Surgical History Past Surgical History: Yes General: Appendectomy Ortho: Knee replacement, Other - Present Medications Home Medications: Ambulatory Orders Medication Instructions Recorded Confirmed [place] Carbonate 1,200 mg PO QPM 03/09/17 06/22/19 Quetiapine Fumarate [Seroquel] 50 mg PO DAILY PM 03/09/17 06/22/19 Atorvastatin [Lipitor] 10 mg PO 2100 tablet 03/31/17 06/22/19 Nitroglycerin [Nitrostat] 0.4 mg SL Q5MIN PRN tablet 03/31/17 06/22/19 Cyclobenzaprine [Flexeril] 10 mg PO TID PRN #20 tablet 03/25/19 06/22/19 Cyclobenzaprine [Flexeril] 10 mg PO TID PRN #15 tablet 12/19/19 Aspirin Chewable [[place] 81 DAILY 04/22/20 Aspirin] Meloxicam 15 DAILY 04/22/20 Methadone 5 BID 04/22/20 - Allergies Allergies/Adverse Reactions: Allergies Allergy/AdvReac Type Severity Reaction Status Date / Time Penicillins Allergy Severe Respiratory Verified 01/07/20 15:47 gabapentin AdvReac Hallucinati Verified 01/07/20 15:47 ons ibuprofen AdvReac Unknown Verified 01/07/20 15:47 - Social History Does the pt smoke?: No Smoking Status: Never smoker Does the pt drink ETOH?: No Does the pt have substance abuse?: No - Immunizations Immunizations are current?: Yes - POLST Patient has POLST: No PD ED PE NORMAL - General General: Alert and oriented X 3 - HEENT HEENT: Atraumatic - Neck Neck: Supple, no meningeal sign - Cardiac Cardiac: RRR - Respiratory Respiratory: No respiratory distress, Clear bilaterally - Abdomen Abdomen: Normal bowel sounds, Non tender, Non distended - Male Male : Deferred - Rectal Rectal: Deferred - Back Back: No spinal TTP - Derm Derm: Normal color, Warm and dry, No rash - Extremities Extremities: No deformity, No tenderness to palpate, No edema, Other (2+ DP pulses) - Neuro Neuro: Alert and oriented X 3 - Psych Psych: Normal mood, Normal affect Results - Vitals Vitals: Vital Signs - 24 hr 04/22/20 04/22/20 03:31 05:36 Temperature 36.8 C 37.5 C Heart Rate 54 L 58 L Respiratory 16 16 Rate Blood Pressure 143/53 H 158/79 H O2 Saturation 97 99 Oxygen O2 Source Room air PD MEDICAL DECISION MAKING - ED course ED course: -65-year-old man with Guillain-Dumont with residual peripheral neuropathy presents with bilateral leg pain causing insomnia for the past 3 nights. Toradol unsuccessful for relief of pain. Patient was given 4 Percocet 5 mg pills. Extensive education about addictive nature of opiate pain medication was given. Patient aware of need for follow-up with his pain doctor. Strict return precautions given. Departure - Departure Disposition: 01 Home, Self Care Clinical Impression: Pain of lower extremity, Neuropathic pain Condition: Good Instructions: NARCOTIC, Oral Comments: You have been given an oral pain medication for your neuropathic leg pain. It is very important that you follow-up with a pain doctor in order to establish a pain regimen. Do not drive or operate heavy machinery while taking this medication. It is sedating and addictive. Discharge Date/Time: 04/22/20 05:37
[2020-04-22] MEDS ORDERED: oxyCODONE/ACET 5/325 Prepack 4 PO STA (04:42)
[2020-04-22 05:38] VITALS: BP 158/79
== END 2020-04-22 05:37 | disposition home or self-care (01) ==
LOC: ED 03:28
DX: G61.0 Guillain-Barre syndrome (principal); G62.9 Polyneuropathy, unspecified; I25.10 Atherosclerotic heart disease of native coronary artery without angina pectoris; Z79.82 Long term (current) use of aspirin
CPT/HCPCS: 96372; 99282; 99283

== ENCOUNTER 2020-05-09 13:15 | Outpatient (CLI) | payer MEDICARE, MEDICAID | END 2020-05-09 13:16 | disposition home or self-care (01) | LOC: DI 13:15 | PROVIDERS: ATTEND Physician Assistant Medical | DX: R42 Dizziness and giddiness (principal) | CPT/HCPCS: 93306 ==

== ENCOUNTER 2020-07-15 08:00 | Outpatient (CLI) | payer MEDICARE, MEDICAID ==
[2020-07-15 18:13] LABS: BASOPHILS # (AUTO) 0.1 10^3/uL (0.0-0.1); BASOPHILS % (AUTO) 0.6 %; EOSINOPHILS # (AUTO) 0.4 10^3/uL (0.0-0.7); EOSINOPHILS % (AUTO) 3.4 %; HGB - HEMOGLOBIN 12.6 g/dL (14.0-18.0); LYMPHOCYTES # (AUTO) 2.2 10^3/uL (1.5-3.5); LYMPHOCYTES % (AUTO) 20.7 %; MEAN CORPUSCULAR HEMOGLOBIN 30.3 pg (27.0-31.0); MEAN CORPUSCULAR HGB CONC 32.1 g/dL (32.0-36.0); MEAN CORPUSCULAR VOLUME 94.2 fL (80.0-94.0); MEAN PLATELET VOLUME 9.6 fL (7.4-11.4); MONOCYTES # (AUTO) 0.5 10^3/uL (0.0-1.0); MONOCYTES % (AUTO) 4.6 %; NEUTROPHILS # (AUTO) 7.4 10^3/uL (1.5-6.6); NEUTROPHILS % (AUTO) 70.4 %; PLT - PLATELET COUNT 207 10^3/uL (130-450); RED BLOOD COUNT 4.16 10^6/uL (4.70-6.10); RED CELL DISTRIBUTION WIDTH 13.3 % (12.0-15.0); WHITE BLOOD COUNT 10.5 x10^3/uL (4.8-10.8)
[2020-07-15 18:51] LABS: ALBUMIN 4.9 g/dL (3.2-5.5); ALBUMIN/GLOBULIN RATIO 1.8 (1.0-2.2); ALKALINE PHOSPHATASE 47 IU/L (42-121); ALT ALANINE AMINOTRANSFERASE 29 IU/L (10-60); AST ASPARTATE AMINOTRANSFERASE 31 IU/L (10-42); BILIRUBIN,TOTAL 0.7 mg/dL (0.2-1.0); BUN - BLOOD UREA NITROGEN 15 mg/dL (6-20); CARBON DIOXIDE - CO2 23 mmol/L (21-32); CHLORIDE 104 mmol/L (101-111); CHOL/HDL RATIO 2.3 (<5.0); CHOLESTEROL 132 mg/dL; GLUCOSE 88 mg/dL (70-100); HDL CHOLESTEROL 57 mg/dL; LDL CHOLESTEROL,CALCULATED 50 mg/dL; LDL/HDL RATIO 0.9 (<3.6); TOTAL PROTEIN 7.7 g/dL (6.7-8.2); VLDL CHOLESTEROL 25 mg/dL
[2020-07-15 18:56] LABS: LITHIUM 0.74 mmol/L
== END 2020-07-15 23:59 | disposition home or self-care (01) ==
LOC: LAB.WCP 08:00
PROVIDERS: ATTEND Physician Assistant Medical
DX: I25.10 Atherosclerotic heart disease of native coronary artery without angina pectoris (principal); E78.5 Hyperlipidemia, unspecified; Z12.5 Encounter for screening for malignant neoplasm of prostate; F41.1 Generalized anxiety disorder; D64.9 Anemia, unspecified; Z79.899 Other long term (current) drug therapy
CPT/HCPCS: 36415; 80053; 80061; 80178; 84443; 85025; G0103; 83721; 84153

== ENCOUNTER 2020-09-18 11:40 | Outpatient (CLI) | payer MEDICARE, MEDICAID | END 2020-09-18 11:41 | disposition home or self-care (01) | LOC: RT 11:40 | PROVIDERS: ATTEND Physician Assistant Medical | DX: Z79.891 Long term (current) use of opiate analgesic (principal) | CPT/HCPCS: 93005 ==

== ENCOUNTER 2020-11-08 12:06 | Outpatient (CLI) | payer MEDICARE, MEDICAID | END 2020-11-08 12:07 | disposition home or self-care (01) | LOC: RT 12:06 | PROVIDERS: ATTEND Nurse Practitioner Family | DX: Z79.891 Long term (current) use of opiate analgesic (principal) | CPT/HCPCS: 93005 ==

== ENCOUNTER → 2021-03-17 | Outpatient (CLI) | payer MEDICARE, MEDICAID ==
[2021-03-17 18:02] LABS: BASOPHILS % (AUTO) 0.5 %; EOSINOPHILS # (AUTO) 0.4 10^3/uL (0.0-0.7); EOSINOPHILS % (AUTO) 4.7 %; HGB - HEMOGLOBIN 13.4 g/dL (14.0-18.0); LYMPHOCYTES # (AUTO) 1.9 10^3/uL (1.5-3.5); LYMPHOCYTES % (AUTO) 25.9 %; MEAN CORPUSCULAR HEMOGLOBIN 30.6 pg (27.0-31.0); MEAN CORPUSCULAR HGB CONC 31.9 g/dL (32.0-36.0); MEAN CORPUSCULAR VOLUME 95.9 fL (80.0-94.0); MONOCYTES # (AUTO) 0.4 10^3/uL (0.0-1.0); MONOCYTES % (AUTO) 5.7 %; NEUTROPHILS # (AUTO) 4.6 10^3/uL (1.5-6.6); NEUTROPHILS % (AUTO) 62.8 %; PLT - PLATELET COUNT 193 10^3/uL (130-450); RED BLOOD COUNT 4.38 10^6/uL (4.70-6.10); RED CELL DISTRIBUTION WIDTH 12.8 % (12.0-15.0); WHITE BLOOD COUNT 7.4 x10^3/uL (4.8-10.8)
[2021-03-17 18:16] LABS: ALBUMIN 4.8 g/dL (3.2-5.5); ALBUMIN/GLOBULIN RATIO 1.7 (1.0-2.2); ALKALINE PHOSPHATASE 50 IU/L (42-121); ALT ALANINE AMINOTRANSFERASE 26 IU/L (10-60); AST ASPARTATE AMINOTRANSFERASE 26 IU/L (10-42); BILIRUBIN,TOTAL 0.8 mg/dL (0.2-1.0); BUN - BLOOD UREA NITROGEN 22 mg/dL (6-20); CARBON DIOXIDE - CO2 21 mmol/L (21-32); CHLORIDE 106 mmol/L (101-111); CHOLESTEROL 154 mg/dL; CREATININE 0.9 mg/dL (0.6-1.2); GFR - MDRD 85 (>89); GLUCOSE 93 mg/dL (70-100); HDL CHOLESTEROL 77 mg/dL; LDL CHOLESTEROL,CALCULATED 61 mg/dL; LDL/HDL RATIO 0.8 (<3.6); PHOSPHORUS 3.6 mg/dL (2.5-4.6); POTASSIUM 4.2 mmol/L (3.5-5.0); SODIUM 137 mmol/L (135-145); TOTAL PROTEIN 7.7 g/dL (6.7-8.2); TRIGLYCERIDES 79 mg/dL; VLDL CHOLESTEROL 16 mg/dL
[2021-03-17 18:19] LABS: LITHIUM 0.81 mmol/L
== END ==
LOC: LAB.WCP 08:00
PROVIDERS: ATTEND Physician Assistant Medical
DX: E78.5 Hyperlipidemia, unspecified (principal); E55.9 Vitamin D deficiency, unspecified; F31.9 Bipolar disorder, unspecified; D64.9 Anemia, unspecified; M88.82 Osteitis deformans of upper arm
CPT/HCPCS: 36415; 80053; 80061; 80069; 80178; 82306; 83721; 83970; 84100; 85025

== ENCOUNTER 2021-04-16 08:00 | Outpatient (CLI) | payer MEDICARE, MEDICAID | END 2021-04-16 23:59 | disposition home or self-care (01) | LOC: LAB 08:00 | PROVIDERS: ATTEND Nurse Practitioner | DX: J34.89 Other specified disorders of nose and nasal sinuses (principal); Z20.822 Contact with and (suspected) exposure to COVID-19 ==

== ENCOUNTER 2021-04-16 14:10 | Outpatient (CLI) | payer MEDICARE, MEDICAID ==
--- NOTE | 2021-04-23 10:14 | XRAY Report ---
PROCEDURE: Hand 3 View BILAT INDICATIONS: BILATERAL HAND ARTHRITIS TECHNIQUE: 3 views of right and left hand(s) acquired. COMPARISON: No FINDINGS: Bones: Right hand: There is a prominent subcortical cyst in the lateral aspect of the lunate. Joint space loss and spurring at the first and fifth metatarsal heads. Mild spurring at the first IP joint and minimally at the fifth DIP joint. Left hand: Moderate joint space loss, subcortical sclerosis and cystic change at the first CMC joint. Small subcortical cyst at the first MCP joint. No fractures or dislocations. No suspicious bony lesions. Soft tissues: No suspicious soft tissue calcifications. IMPRESSION: 1. Scattered arthritic changes in both hands as described. Changes in the left hand are more suggesti ve of osteoarthritis. Prominent osteophytosis of the metacarpal heads suggests hemachromatosis or oth er arthropathy. Reviewed by: Eduarda Robin MD on 04/23/2021 10:13 AM PDT Approved by: Eduarda Robin MD on 04/23/2021 10:13 AM PDT Station ID: [id number]
== END 2021-04-16 14:11 | disposition home or self-care (01) ==
LOC: DI.N 14:10
PROVIDERS: ATTEND Physician Assistant
DX: M19.042 Primary osteoarthritis, left hand (principal); M19.041 Primary osteoarthritis, right hand; R93.6 Abnormal findings on diagnostic imaging of limbs; J34.89 Other specified disorders of nose and nasal sinuses; Z20.822 Contact with and (suspected) exposure to COVID-19
CPT/HCPCS: 73130; U0004

== ENCOUNTER 2021-05-31 12:10 | Outpatient (CLI) | payer MEDICARE, MEDICAID ==
[2021-05-31 12:49] LABS: CHOL/HDL RATIO 2.5 (<5.0); CHOLESTEROL 182 mg/dL; HDL CHOLESTEROL 73 mg/dL; LDL CHOLESTEROL,CALCULATED 84 mg/dL; LDL/HDL RATIO 1.2 (<3.6); TRIGLYCERIDES 127 mg/dL; VLDL CHOLESTEROL 25 mg/dL
== END 2021-05-31 12:11 | disposition home or self-care (01) ==
LOC: LAB 12:10
PROVIDERS: ATTEND Internal Medicine Cardiovascular Disease
DX: I25.10 Atherosclerotic heart disease of native coronary artery without angina pectoris (principal)
CPT/HCPCS: 36415; 80061; 83721

== ENCOUNTER 2022-03-24 21:34 | Emergency (ER) | payer MEDICARE, MEDICAID ==
--- NOTE | 2022-03-24 22:13 | ED Physician Documentation ---
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 Patient took first dose of bactrim tonight. This was prescribed for LLE "sore on my leg that wasn't healing" (per patient). He did not feel any odd or unusual sensation until approximately 90 minutes later when he started eating dinner; he took the first bite of his meal (richter) and felt as if his throat was tightening/constricted and the bite of richter felt as though it became stuck in esophagus (he points to lower anterior neck just above sternal notch). He immediately had pain at this area and was unable to swallow anything including secretions. He felt short of breath, as well. Immediately prior to ED arrival, he had perception that the piece of richter that was stuck moved down / resolved (he feels he was able to finally swallow the piece of food). However, nausea and vomiting persisted and he notes pain in the area where the food had presumably gotten caught. Review of Systems Constitutional: denies: Fever Throat: reports: Sore throat Cardiac: reports: Reviewed and negative Respiratory: reports: Reviewed and negative GI: reports: Nausea, Vomiting. denies: Abdominal Pain, Hematemesis PD PAST MEDICAL HISTORY - Past Medical History Past Medical History: Yes Cardiovascular: High cholesterol, Coronary artery disease Respiratory: None Neuro: Other Endocrine/Autoimmune: Other GI: Hemorrhoids : None HEENT: None Psych: Bipolar disorder Musculoskeletal: Osteoarthritis, Chronic back pain Derm: None - Past Surgical History Past Surgical History: Yes General: Appendectomy Ortho: Knee replacement, Other - Present Medications Home Medications: Ambulatory Orders Medication Instructions Recorded Confirmed [place] Carbonate 1,200 mg PO QPM 03/09/17 03/24/22 Quetiapine Fumarate [Seroquel] 50 mg PO DAILY PM 03/09/17 03/24/22 Atorvastatin [Lipitor] 10 mg PO 2100 tablet 03/31/17 03/24/22 Nitroglycerin [Nitrostat] 0.4 mg SL Q5MIN PRN tablet 03/31/17 03/24/22 Cyclobenzaprine [Flexeril] 10 mg PO TID PRN #20 tablet 03/25/19 03/24/22 Cyclobenzaprine [Flexeril] 10 mg PO TID PRN #15 tablet 12/19/19 03/24/22 Aspirin Chewable [[place] 81 mg PO DAILY 04/22/20 03/24/22 Aspirin] Meloxicam 15 mg PO DAILY 04/22/20 Methadone [Methadone Hcl] 5 mg PO BID 04/22/20 03/24/22 Doxycycline [Vibramycin] 100 mg PO BID #19 tablet 03/24/22 Ondansetron Odt [Zofran Odt] 4 mg TL Q6H PRN #10 tablet 03/24/22 - Allergies Allergies/Adverse Reactions: Allergies Allergy/AdvReac Type Severity Reaction Status Date / Time Penicillins Allergy Severe Respiratory Verified 03/24/22 21:41 gabapentin AdvReac Hallucinati Verified 03/24/22 21:41 ons ibuprofen AdvReac Unknown Verified 03/24/22 21:41 - Social History Does the pt smoke?: No Smoking Status: Never smoker Does the pt drink ETOH?: No Does the pt have substance abuse?: No - Immunizations Immunizations are current?: Yes - POLST Patient has POLST: No PD ED PE NORMAL - Vitals Vital signs reviewed: Yes - General General: Alert and oriented X 3, Well developed/nourished, Other (mostly NAD but has episodes of vomiting x 2 during this H+P) - Neck Neck: Supple, no meningeal sign - Cardiac Cardiac: RRR, No murmur - Respiratory Respiratory: No respiratory distress, Clear bilaterally - Abdomen Abdomen: Soft, Non tender, Non distended Results - Vitals Vitals: Vital Signs - 24 hr 03/24/22 03/24/22 03/24/22 21:37 22:11 22:30 Temperature 36.8 C Heart Rate 85 83 78 Respiratory 17 15 12 Rate Blood Pressure 146/83 H 167/93 H 163/87 H O2 Saturation 99 100 100 03/24/22 03/24/22 03/24/22 22:44 23:00 23:06 Temperature Heart Rate 74 74 69 Respiratory 17 13 16 Rate Blood Pressure 163/87 H 142/82 H O2 Saturation 99 100 100 03/25/22 00:08 Temperature 36.8 C Heart Rate 68 Respiratory 16 Rate Blood Pressure 139/79 H O2 Saturation 99 Oxygen O2 Source Room air - Labs Labs: Laboratory Tests 03/24/22 03/24/22 22:00 22:00 WBC 12.8 H RBC 4.37 L Hgb 13.3 L Hct 40.0 L MCV 91.5 MCH 30.4 MCHC 33.3 RDW 12.6 Plt Count 271 MPV 9.1 Neut # (Auto) 10.2 H Lymph # (Auto) 1.6 [place] # (Auto) 0.6 Eos # (Auto) 0.4 Baso # (Auto) 0.0 Absolute Nucleated RBC 0.00 Nucleated RBC % 0.0 Sodium 136 Potassium 3.8 Chloride 105 Carbon Dioxide 23 Anion Gap 8.0 BUN 17 Creatinine 0.9 Estimated GFR (MDRD) 84 L Glucose 99 Calcium 9.7 Total Bilirubin 0.5 AST 32 ALT 31 Alkaline Phosphatase 58 Total Protein 8.3 H Albumin 4.7 Globulin 3.6 Albumin/Globulin Ratio 1.3 Lipase 28 PD MEDICAL DECISION MAKING - ED course Complexity details: reviewed results, re-evaluated patient, considered differential, d/w patient ED course: Given IV NS x one liter bolus, as well as PO maalox with viscous lidocaine (for the throat pain). His lab tests have no remarkable/concerning findings; mild leukocytosis noted (WBC 12.8). On reevaluation, he is in NAD and reports feeling much better. The n/v has resolved and he does not feel as though his throat is constricted nor dyspneic. He is given zofran TL take home pack and rx for this is provided. The timing of the onset of symptoms from when he took the bactrim makes allergic reaction unlikely; he says it was approximately 90 minutes later and it is not clear if he feels that his throat was already feeling constricted before he started dinner or if he is attributing what sounds like a food bolus impaction to sensation of constriction of the throat. Because there are other options for his LLE wound, I recommended changing to doxycycline (and stopping the bactrim), which he agrees with. A prescription for doxycycline was also electronically submitted to his pharmacy of choice along with the zofran Departure - Departure Disposition: 01 Home, Self Care Clinical Impression: Vomiting Qualifiers: Vomiting type: unspecified Nausea presence: with nausea Qualified Code(s): R11.2 - Nausea with vomiting, unspecified Condition: Good Instructions: ED Nausea Vomiting Follow-Up: Anabel Mendoza PA-C [Primary Care Provider] - (3-5 days if still having any symptoms) Prescriptions: Doxycycline [Vibramycin] 100 mg PO BID #19 tablet Ondansetron Odt [Zofran Odt] 4 mg TL Q6H PRN #10 tablet PRN Reason: Nausea / Vomiting Comments: Your description of symptoms sounds like you had food stuck at the top of your esophagus that then passed (swallowed) with residual discomfort. It is not clear why you had persistent nausea and vomiting, however. Your blood tests are mostly unremarkable; there is a very mildly elevated white blood cell count, but this is nonspecific and not high enough to cause concern at this time. A prescription for ondansetron (anti-nausea medication) has been electronically sent to [facility] in [place], as well as a prescription for doxycycline (antibiotic). I think it unlikely that you had a reaction to the sulfa antibiotic (bactrim) , as you didn't have symptoms for at least an hour after you took the medication, but since there are many other options to treat the infection on the left leg, you can stop the sulfa/trimethorim and start doxycycline. Discharge Date/Time: 03/25/22 00:08
[2022-03-24] MEDS ORDERED: SODIUM CHLORIDE 0.9% 1,000 ML IV STA (22:31)
[2022-03-24] MEDS ORDERED: MAG HYDROX/AL HYDROX/SIMETH 30 ML UDC PO STA (22:31)
[2022-03-24] MEDS ORDERED: LIDOCAINE VISCOUS 2% 15 ML UDC MM STA (22:31)
[2022-03-24 22:36] LABS: BASOPHILS % (AUTO) 0.3 %; EOSINOPHILS # (AUTO) 0.4 10^3/uL (0.0-0.7); EOSINOPHILS % (AUTO) 2.9 %; HGB - HEMOGLOBIN 13.3 g/dL (14.0-18.0); LYMPHOCYTES # (AUTO) 1.6 10^3/uL (1.5-3.5); LYMPHOCYTES % (AUTO) 12.3 %; MEAN CORPUSCULAR HEMOGLOBIN 30.4 pg (27.0-31.0); MEAN CORPUSCULAR HGB CONC 33.3 g/dL (32.0-36.0); MEAN CORPUSCULAR VOLUME 91.5 fL (80.0-94.0); MEAN PLATELET VOLUME 9.1 fL (7.4-11.4); MONOCYTES # (AUTO) 0.6 10^3/uL (0.0-1.0); MONOCYTES % (AUTO) 4.8 %; NEUTROPHILS # (AUTO) 10.2 10^3/uL (1.5-6.6); NEUTROPHILS % (AUTO) 79.4 %; PLT - PLATELET COUNT 271 10^3/uL (130-450); RED BLOOD COUNT 4.37 10^6/uL (4.70-6.10); RED CELL DISTRIBUTION WIDTH 12.6 % (12.0-15.0); WHITE BLOOD COUNT 12.8 x10^3/uL (4.8-10.8)
[2022-03-24 22:45] LABS: ALBUMIN 4.7 g/dL (3.2-5.5); ALBUMIN/GLOBULIN RATIO 1.3 (1.0-2.2); BILIRUBIN,TOTAL 0.5 mg/dL (0.2-1.0); CALCIUM 9.7 mg/dL (8.5-10.3); CREATININE 0.9 mg/dL (0.6-1.2); POTASSIUM 3.8 mmol/L (3.5-5.0); TOTAL PROTEIN 8.3 g/dL (6.7-8.2)
[2022-03-24] MEDS ORDERED: DOXYCYCLINE 100 MG TABLET PO STA (23:46)
[2022-03-24] MEDS ORDERED: ONDANSETRON ODT 4 MG Prepack 2 TL PRN (23:47)
[2022-03-25 00:09] VITALS: BP 139/79
== END 2022-03-25 00:08 | disposition home or self-care (01) ==
LOC: ED 21:34
DX: R11.2 Nausea with vomiting, unspecified (principal); R07.0 Pain in throat; D72.829 Elevated white blood cell count, unspecified; I25.10 Atherosclerotic heart disease of native coronary artery without angina pectoris; Z79.82 Long term (current) use of aspirin
CPT/HCPCS: 36415; 80053; 83690; 85025; 99283; A9270

== ENCOUNTER 2022-03-30 12:40 | Outpatient (CLI) | payer MEDICARE, MEDICAID ==
[2022-03-30 18:10] LABS: BASOPHILS % (AUTO) 0.1 %; EOSINOPHILS # (AUTO) 0.1 10^3/uL (0.0-0.7); HCT - HEMATOCRIT 39.9 % (42.0-52.0); LYMPHOCYTES # (AUTO) 2.3 10^3/uL (1.5-3.5); LYMPHOCYTES % (AUTO) 16.7 %; MEAN CORPUSCULAR HEMOGLOBIN 30.1 pg (27.0-31.0); MEAN CORPUSCULAR HGB CONC 32.6 g/dL (32.0-36.0); MEAN CORPUSCULAR VOLUME 92.4 fL (80.0-94.0); MEAN PLATELET VOLUME 9.8 fL (7.4-11.4); MONOCYTES # (AUTO) 0.9 10^3/uL (0.0-1.0); MONOCYTES % (AUTO) 6.4 %; NEUTROPHILS # (AUTO) 10.2 10^3/uL (1.5-6.6); NEUTROPHILS % (AUTO) 75.4 %; PLT - PLATELET COUNT 261 10^3/uL (130-450); RED BLOOD COUNT 4.32 10^6/uL (4.70-6.10); RED CELL DISTRIBUTION WIDTH 12.5 % (12.0-15.0); WHITE BLOOD COUNT 13.5 x10^3/uL (4.8-10.8)
[2022-03-30 18:20] LABS: ALBUMIN 4.6 g/dL (3.2-5.5); ALBUMIN/GLOBULIN RATIO 1.4 (1.0-2.2); BILIRUBIN,TOTAL 0.7 mg/dL (0.2-1.0); CREATININE 0.9 mg/dL (0.6-1.2); TOTAL PROTEIN 7.8 g/dL (6.7-8.2)
[2022-03-30 18:21] LABS: LITHIUM 0.74 mmol/L
== END 2022-03-30 12:41 | disposition home or self-care (01) ==
LOC: LAB.N 12:40
PROVIDERS: ATTEND Physician Assistant Medical
DX: M88.9 Osteitis deformans of unspecified bone (principal); F31.10 Bipolar disorder, current episode manic without psychotic features, unspecified
CPT/HCPCS: 36415; 80053; 80178; 85025

== ENCOUNTER 2022-05-11 12:16 | Outpatient (CLI) | payer MEDICARE, MEDICAID ==
[2022-05-11 17:57] LABS: BASOPHILS % (AUTO) 0.4 %; EOSINOPHILS # (AUTO) 0.2 10^3/uL (0.0-0.7); EOSINOPHILS % (AUTO) 2.6 %; HCT - HEMATOCRIT 41.6 % (42.0-52.0); HGB - HEMOGLOBIN 12.9 g/dL (14.0-18.0); LYMPHOCYTES # (AUTO) 1.2 10^3/uL (1.5-3.5); LYMPHOCYTES % (AUTO) 13.8 %; MEAN CORPUSCULAR HEMOGLOBIN 29.7 pg (27.0-31.0); MEAN CORPUSCULAR VOLUME 95.6 fL (80.0-94.0); MEAN PLATELET VOLUME 9.7 fL (7.4-11.4); MONOCYTES # (AUTO) 0.9 10^3/uL (0.0-1.0); MONOCYTES % (AUTO) 10.7 %; NEUTROPHILS # (AUTO) 6.1 10^3/uL (1.5-6.6); NEUTROPHILS % (AUTO) 72.1 %; PLT - PLATELET COUNT 236 10^3/uL (130-450); RED BLOOD COUNT 4.35 10^6/uL (4.70-6.10); RED CELL DISTRIBUTION WIDTH 13.4 % (12.0-15.0); WHITE BLOOD COUNT 8.4 x10^3/uL (4.8-10.8)
[2022-05-11 18:20] LABS: CHOL/HDL RATIO 2.7 (<5.0); CHOLESTEROL 129 mg/dL; HDL CHOLESTEROL 48 mg/dL; LDL CHOLESTEROL,CALCULATED 45 mg/dL; LDL/HDL RATIO 0.9 (<3.6); TRIGLYCERIDES 178 mg/dL; VLDL CHOLESTEROL 36 mg/dL
== END 2022-05-11 12:17 | disposition home or self-care (01) ==
LOC: LAB.N 12:16
PROVIDERS: ATTEND Physician Assistant Medical
DX: E78.5 Hyperlipidemia, unspecified (principal); L03.90 Cellulitis, unspecified; Z12.5 Encounter for screening for malignant neoplasm of prostate
CPT/HCPCS: 36415; 80061; 85025; G0103; 83721; 84153

== ENCOUNTER 2022-05-19 08:00 | Outpatient (CLI) | payer MEDICARE, MEDICAID ==
[2022-05-19 21:02] LABS: FECAL OCCULT BLOOD (FIT) NEGATIVE (NEGATIVE)
== END 2022-05-19 23:59 | disposition home or self-care (01) ==
LOC: LAB 08:00
PROVIDERS: ATTEND Family Medicine
DX: D64.9 Anemia, unspecified (principal)
CPT/HCPCS: 82274

== ENCOUNTER 2022-06-09 13:57 | Outpatient (CLI) | payer MEDICARE, MEDICAID ==
[2022-06-09 19:38] LABS: THYROID STIMULATING HORMONE 1.38 uIU/mL (0.34-5.60)
[2022-06-09 19:45] LABS: FERRITIN 147.1 ng/mL (23.9-336.2)
== END 2022-06-09 13:58 | disposition home or self-care (01) ==
LOC: LAB.N 13:57
PROVIDERS: ATTEND Physician Assistant Medical
DX: R53.83 Other fatigue (principal)
CPT/HCPCS: 36415; 82306; 82607; 82728; 84443

== ENCOUNTER 2022-06-12 14:59 | Outpatient (CLI) | payer MEDICARE, MEDICAID ==
[2022-06-12 15:38] LABS: CHOL/HDL RATIO 2.7 (<5.0); CHOLESTEROL 123 mg/dL; HDL CHOLESTEROL 46 mg/dL; LDL CHOLESTEROL,CALCULATED 55 mg/dL; LDL/HDL RATIO 1.2 (<3.6); TRIGLYCERIDES 108 mg/dL; VLDL CHOLESTEROL 22 mg/dL
== END 2022-06-12 15:00 | disposition home or self-care (01) ==
LOC: LAB 14:59
PROVIDERS: ATTEND Internal Medicine Cardiovascular Disease
DX: E78.5 Hyperlipidemia, unspecified (principal)
CPT/HCPCS: 36415; 80061; 83721

== ENCOUNTER 2022-10-30 13:07 | Emergency (ER) | payer MEDICARE, MEDICAID ==
[2022-10-30 13:23] VITALS: BP 144/78
[2022-10-30] MEDS ORDERED: PANTOPRAZOLE 40 MG TABLET PO STA (13:26)
[2022-10-30] MEDS ORDERED: ONDANSETRON ODT 4 MG TABLET TL STA (13:26)
[2022-10-30] MEDS ORDERED: predniSONE 20 MG TABLET PO STA (13:26)
--- NOTE | 2022-10-30 13:29 | ED Physician Documentation ---
History of Present Illness - Stated complaint Stated Complaint: NECK/SHOULDER PAIN - Chief complaint Chief Complaint: Back Pain - History obtained from History obtained from: Patient - Additonal information Additional information: 67-year-old gentleman has been having ongoing neck pain since April after he helped a friend lift a pool table and he got guerrero. Since then he has had significant mid neck pain with numbness and pain in the left arm. Few days ago while doing light activity at home he got increased pain and now has some pain radiating down the right arm. He has had x-rays for this showing DJD, no MRI yet. He has been in physical therapy. He has been taking NSAIDs which are helpful but he has some stomach upset from that. He is wondering about a steroid taper. PD PAST MEDICAL HISTORY - Past Medical History Cardiovascular: High cholesterol, Coronary artery disease Respiratory: None Neuro: Other Endocrine/Autoimmune: Other GI: Hemorrhoids : None HEENT: None Psych: Bipolar disorder Musculoskeletal: Osteoarthritis, Chronic back pain Derm: None - Past Surgical History Past Surgical History: Yes General: Appendectomy Ortho: Knee replacement, Other - Present Medications Home Medications: Ambulatory Orders Medication Instructions Recorded Confirmed [place] Carbonate 1,200 mg PO QPM 03/09/17 03/24/22 Quetiapine Fumarate [Seroquel] 50 mg PO DAILY PM 03/09/17 03/24/22 Atorvastatin [Lipitor] 10 mg PO 2100 tablet 03/31/17 03/24/22 Nitroglycerin [Nitrostat] 0.4 mg SL Q5MIN PRN tablet 03/31/17 03/24/22 Cyclobenzaprine [Flexeril] 10 mg PO TID PRN #20 tablet 03/25/19 03/24/22 Cyclobenzaprine [Flexeril] 10 mg PO TID PRN #15 tablet 12/19/19 03/24/22 Aspirin Chewable [[place] 81 mg PO DAILY 04/22/20 03/24/22 Aspirin] Meloxicam 15 mg PO DAILY 04/22/20 Methadone [Methadone Hcl] 5 mg PO BID 04/22/20 03/24/22 Doxycycline [Vibramycin] 100 mg PO BID #19 tablet 03/24/22 Ondansetron Odt [Zofran Odt] 4 mg TL Q6H PRN #10 tablet 03/24/22 predniSONE [Deltasone] 60 mg PO DAILY 5 Days #15 tablet 03/29/22 Omeprazole 40 mg PO DAILY #30 cap 10/30/22 Ondansetron Odt [Zofran] 4 mg TL Q6H PRN #10 tablet 10/30/22 predniSONE [Deltasone] 20 mg PO [id number] #21 tab 10/30/22 - Allergies Allergies/Adverse Reactions: Allergies Allergy/AdvReac Type Severity Reaction Status Date / Time Penicillins Allergy Severe Respiratory Verified 10/30/22 13:17 gabapentin AdvReac Hallucinati Verified 10/30/22 13:17 ons ibuprofen AdvReac Unknown Verified 10/30/22 13:17 - Social History Does the pt smoke?: No Smoking Status: Never smoker Does the pt drink ETOH?: No Does the pt have substance abuse?: No - Immunizations Immunizations are current?: Yes - POLST Patient has POLST: No PD ED PE NORMAL - Vitals Vital signs reviewed: Yes - General General: Alert and oriented X 3, No acute distress - Neck Neck: Other (Mild tenderness of the mid C-spine) - Extremities Extremities: Other (He seems to have equal symmetric strength throughout the upper extremities 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 He does have some numbness mostly on the medial side of the right hand and forearm.) - Neuro Neuro: Alert and oriented X 3 Eye Opening: Spontaneous Motor: Obeys Commands Verbal: Oriented GCS Score: 15 - Psych Psych: Normal mood, Normal affect Results - Vitals Vitals: Vital Signs - 24 hr 10/30/22 13:15 Temperature 37 C Heart Rate 72 Respiratory 20 Rate Blood Pressure 144/78 H O2 Saturation 97 Oxygen O2 Source Room air PD Medical Decision Making - ED course ED course: 67-year-old gentleman with cervical radiculopathy plus or minus some spinal stenosis without cauda equina symptoms. Will give him a steroid taper, PPI so he can tolerated NSAID, and he requests a refill on ondansetron. Discussed with him the need for follow-up, potential MRI given worsening symptoms. Departure - Departure Disposition: 01 Home, Self Care Clinical Impression: Cervical radiculopathy Condition: Good Record reviewed to determine appropriate education?: Yes Instructions: ED Cervical Radiculopathy Prescriptions: predniSONE [Deltasone] 20 mg PO [id number] #21 tab Omeprazole 40 mg PO DAILY #30 cap Ondansetron Odt [Zofran] 4 mg TL Q6H PRN #10 tablet PRN Reason: Nausea / Vomiting Comments: Follow-up with NOHELIA Mendoza. Probably is time for consideration for an MRI. Call their office tomorrow for the next available appointment. Return for new or worsening symptoms. Given your examination and symptoms I suspect you have probably multiple herniated disks in your neck.
== END 2022-10-30 13:37 | disposition home or self-care (01) ==
LOC: ED 13:07
DX: M54.12 Radiculopathy, cervical region (principal)
CPT/HCPCS: 99282; 99283; A9270; J7512; Q0162

== ENCOUNTER 2022-11-03 13:02 | Outpatient (CLI) | payer MEDICARE, MEDICAID ==
--- NOTE | 2022-11-03 13:42 | XRAY Report ---
PROCEDURE: Cervical Spine 2 View INDICATIONS: CERVICAL PAIN TECHNIQUE: 3 view(s) of the cervical spine were acquired. COMPARISON: X-ray cervical spine 10/09/2021 FINDINGS: Bones: No fractures or dislocations to the C7-T1 level. The lateral masses of C1 appear intact on t he odontoid view. No suspicious bony lesions. Multilevel degenerative changes including most promin ent disc space narrowing at C5-6 and C6-7. Multilevel bridging osteophytes are present most notable a t C5-6 and C6-7. There are scattered areas of vertebra probably within the lower cervical spine are p resent. Soft tissues: No prevertebral soft tissue swelling. IMPRESSION: Degenerative changes most severe at C5-6 and C6-7 Reviewed by: Tomasa Del Valle MD on 11/03/2022 1:41 PM PDT Approved by: Tomasa Del Valle MD on 11/03/2022 1:41 PM PDT Station ID: [id number]
== END 2022-11-03 13:03 | disposition home or self-care (01) ==
LOC: DI 13:02
PROVIDERS: ATTEND Physician Assistant
DX: M47.812 Spondylosis without myelopathy or radiculopathy, cervical region (principal)

== ENCOUNTER 2022-11-03 13:04 | Outpatient (CLI) | payer MEDICARE, MEDICAID | END 2022-11-03 13:05 | disposition home or self-care (01) | LOC: RT 13:04 | PROVIDERS: ATTEND Physician Assistant | DX: Z79.891 Long term (current) use of opiate analgesic (principal) | CPT/HCPCS: 93005 ==

== ENCOUNTER 2022-11-13 13:08 | Outpatient (CLI) | payer MEDICARE, MEDICAID ==
[2022-11-13 18:52] LABS: ALBUMIN 4.3 g/dL (3.2-5.5); ALBUMIN/GLOBULIN RATIO 1.4 (1.0-2.2); BILIRUBIN,TOTAL 0.6 mg/dL (0.2-1.0); CALCIUM 9.6 mg/dL (8.5-10.3); POTASSIUM 3.9 mmol/L (3.5-5.0); TOTAL PROTEIN 7.3 g/dL (6.7-8.2)
== END 2022-11-13 13:09 | disposition home or self-care (01) ==
LOC: LAB.N 13:08
PROVIDERS: ATTEND Physician Assistant Medical
DX: B35.1 Tinea unguium (principal); E55.9 Vitamin D deficiency, unspecified
CPT/HCPCS: 36415; 80053; 82306

== ENCOUNTER 2022-11-19 07:11 | Outpatient (CLI) | payer MEDICARE, MEDICAID ==
--- NOTE | 2022-11-19 15:02 | MRI Report ---
PROCEDURE: CERVICAL SPINE WO INDICATIONS: CERVICAL RADICULOPATHY TECHNIQUE: Noncontrast sagittal T1 spin echo and T2 fast spin echo, sagittal STIR, foraminal oblique sagittal T2 fast spin echo, and axial gradient echo or T2 fast spin echo through the cervical spine. COMPARISON: X-ray cervical spine 11/03/2022 FINDINGS: Image quality: Excellent. Alignment and Curvature: There is normal bony alignment. Bone Marrow: Marrow demonstrates normal overall signal. Spinal Cord: Visualized spinal cord has normal size and signal. No cerebellar tonsillar herniation. Paraspinous Soft Tissues: No paravertebral masses. Prevertebral soft tissues are normal in thicknes s. Discs: Mild to moderate disc desiccation is present throughout cervical spine most severe at C5-6 C6- 7. C2-C3: Minimal disc bulge without spinal stenosis. Minimal left foraminal narrowing with uncovertebr al hypertrophy. C3-C4: Mild disc bulge with effacement of the anterior thecal sac. No foraminal narrowing. C4-C5: Mild disc bulge with small posterior central protrusion. There is effacement of the anterior thecal sac without foraminal narrowing. C5-C6: Mild disc bulge with slight effacement of the anterior thecal sac. No foraminal narrowing. C6-C7: Mild disc bulge without spinal stenosis. Moderate bilateral foraminal narrowing with uncovert ebral hypertrophy. C7-T1: Minimal disc bulge or spinal stenosis or foraminal narrowing. IMPRESSION: Degenerative changes most notable at C6-7 demonstrating moderate bilateral foraminal narrowing second lydia to uncovertebral arthropathy. Reviewed by: Tomasa Del Valle MD on 11/19/2022 3:01 PM PDT Approved by: Tomasa Del Valle MD on 11/19/2022 3:01 PM PDT Station ID: [id number]
== END 2022-11-19 07:12 | disposition home or self-care (01) ==
LOC: DI 07:11
PROVIDERS: ATTEND Physician Assistant Medical
DX: M47.812 Spondylosis without myelopathy or radiculopathy, cervical region (principal); M48.02 Spinal stenosis, cervical region

== ENCOUNTER 2023-08-10 12:13 | Outpatient (CLI) | payer MEDICARE, MEDICAID ==
[2023-08-10 17:31] LABS: BASOPHILS % (AUTO) 0.5 %; EOSINOPHILS # (AUTO) 0.3 10^3/uL (0.0-0.7); EOSINOPHILS % (AUTO) 4.3 %; HGB - HEMOGLOBIN 12.8 g/dL (14.0-18.0); LYMPHOCYTES # (AUTO) 1.4 10^3/uL (1.5-3.5); LYMPHOCYTES % (AUTO) 18.6 %; MEAN CORPUSCULAR HEMOGLOBIN 29.8 pg (27.0-31.0); MEAN CORPUSCULAR HGB CONC 31.2 g/dL (32.0-36.0); MEAN CORPUSCULAR VOLUME 95.3 fL (80.0-94.0); MEAN PLATELET VOLUME 10.3 fL (7.4-11.4); MONOCYTES # (AUTO) 0.4 10^3/uL (0.0-1.0); MONOCYTES % (AUTO) 4.9 %; NEUTROPHILS # (AUTO) 5.5 10^3/uL (1.5-6.6); NEUTROPHILS % (AUTO) 71.4 %; PLT - PLATELET COUNT 237 10^3/uL (130-450); RED CELL DISTRIBUTION WIDTH 13.4 % (12.0-15.0); WHITE BLOOD COUNT 7.7 x10^3/uL (4.8-10.8)
[2023-08-10 18:04] LABS: ALBUMIN 4.9 g/dL (3.2-5.5); ALBUMIN/GLOBULIN RATIO 1.7 (1.0-2.2); ALKALINE PHOSPHATASE 56 IU/L (42-121); ALT ALANINE AMINOTRANSFERASE 17 IU/L (10-60); AST ASPARTATE AMINOTRANSFERASE 20 IU/L (10-42); BILIRUBIN,TOTAL 0.7 mg/dL (0.2-1.0); BUN - BLOOD UREA NITROGEN 17 mg/dL (6-20); CALCIUM 10.2 mg/dL (8.5-10.3); CARBON DIOXIDE - CO2 24 mmol/L (21-32); CHLORIDE 106 mmol/L (101-111); CHOL/HDL RATIO 2.4 (<5.0); CHOLESTEROL 141 mg/dL; CREATININE 0.9 mg/dL (0.6-1.3); GFR - MDRD 84 (>89); GLUCOSE 93 mg/dL (74-104); HDL CHOLESTEROL 58 mg/dL; LDL CHOLESTEROL,CALCULATED 45 mg/dL; LDL/HDL RATIO 0.8 (<3.6); POTASSIUM 3.9 mmol/L (3.5-4.5); SODIUM 137 mmol/L (135-145); TOTAL PROTEIN 7.8 g/dL (6.4-8.9); TRIGLYCERIDES 190 mg/dL (48-352); VLDL CHOLESTEROL 38 mg/dL
== END 2023-08-10 12:14 | disposition home or self-care (01) ==
LOC: LAB.N 12:13
PROVIDERS: ATTEND Physician Assistant Medical
DX: E78.5 Hyperlipidemia, unspecified (principal); E55.9 Vitamin D deficiency, unspecified; Z12.5 Encounter for screening for malignant neoplasm of prostate; D64.9 Anemia, unspecified
CPT/HCPCS: 36415; 80053; 80061; 82306; 83721; 84153; 85025

== ENCOUNTER 2023-11-04 13:03 | Outpatient (CLI) | payer MEDICARE, MEDICAID ==
[2023-11-04 18:39] LABS: LITHIUM 0.73 mmol/L
== END 2023-11-04 13:04 | disposition home or self-care (01) ==
LOC: LAB.N 13:03
PROVIDERS: ATTEND Physician Assistant Medical
DX: F31.10 Bipolar disorder, current episode manic without psychotic features, unspecified (principal); Z12.5 Encounter for screening for malignant neoplasm of prostate
CPT/HCPCS: 36415; 80178; G0103; 84153

== ENCOUNTER 2023-11-21 12:14 | Emergency (ER) | payer MEDICARE, MEDICAID ==
--- NOTE | 2023-11-21 12:42 | ED Physician Documentation ---
PD HPI UPPER EXT INJURY - Stated complaint Stated Complaint: DOG BITE LAC - Chief complaint Chief Complaint: Laceration - History obtained from History obtained from: Patient - History of Present Illness Location: Left (68-year-old gentleman with unknown tetanus status and penicillin allergy was bitten by his friend's dog to the left elbow just prior to arrival.) PD PAST MEDICAL HISTORY - Past Medical History Past Medical History: Yes Cardiovascular: High cholesterol, Coronary artery disease Respiratory: None Neuro: Other Endocrine/Autoimmune: Other GI: Hemorrhoids : None HEENT: None Psych: Bipolar disorder Musculoskeletal: Osteoarthritis, Chronic back pain Derm: None - Past Surgical History Past Surgical History: Yes General: Appendectomy, Colonoscopy Ortho: Knee replacement, Other Neuro: Other - Present Medications Home Medications: Ambulatory Orders Medication Instructions Recorded Confirmed [place] Carbonate 1,200 mg PO QPM 03/09/17 11/15/23 Quetiapine Fumarate [Seroquel] 50 mg PO DAILY PM 03/09/17 11/15/23 Atorvastatin [Lipitor] 10 mg PO 2100 tablet 03/31/17 03/24/22 Nitroglycerin [Nitrostat] 0.4 mg SL Q5MIN PRN tablet 03/31/17 03/24/22 Cyclobenzaprine [Flexeril] 10 mg PO TID PRN #20 tablet 03/25/19 11/15/23 Cyclobenzaprine [Flexeril] 10 mg PO TID PRN #15 tablet 12/19/19 03/24/22 Aspirin Chewable [[place] 81 mg PO DAILY 04/22/20 03/24/22 Aspirin] Meloxicam 15 mg PO DAILY 04/22/20 11/15/23 Methadone [Methadone Hcl] 5 mg PO BID 04/22/20 11/15/23 Doxycycline [Vibramycin] 100 mg PO BID #19 tablet 03/24/22 Ondansetron Odt [Zofran Odt] 4 mg TL Q6H PRN #10 tablet 03/24/22 predniSONE [Deltasone] 60 mg PO DAILY 5 Days #15 tablet 03/29/22 Omeprazole 40 mg PO DAILY #30 cap 10/30/22 11/15/23 Ondansetron Odt [Zofran] 4 mg TL Q6H PRN #10 tablet 10/30/22 predniSONE [Deltasone] 20 mg PO [id number] #21 tab 10/30/22 Doxycycline [Vibramycin] 100 mg PO BID #14 tablet 11/21/23 clindamycin HCL [Cleocin HCl] 300 mg PO QID #28 cap 11/21/23 - Allergies Allergies/Adverse Reactions: Allergies Allergy/AdvReac Type Severity Reaction Status Date / Time Penicillins Allergy Severe Respiratory Verified 11/21/23 12:28 gabapentin AdvReac Hallucinati Verified 11/21/23 12:28 ons ibuprofen AdvReac Unknown Verified 11/21/23 12:28 - Social History Does the pt smoke?: No Smoking Status: Never smoker Does the pt drink ETOH?: No Does the pt have substance abuse?: No - Immunizations Immunizations are current?: Yes - POLST Patient has POLST: No PD ED PE NORMAL - Vitals Vital signs reviewed: Yes - General General: Alert and oriented X 3, No acute distress - Extremities Extremities: Other (There is a 6 cm jagged wound on the dorsal lateral surface of the left elbow down to muscle. There are 2 puncture wounds on the other side that are quite small. He has normal sensation and flexor tendon function throughout the left hand.) - Neuro Neuro: Alert and oriented X 3, Normal speech - Psych Psych: Normal mood, Normal affect Results - Vitals Vitals: Vital Signs - 24 hr 11/21/23 11/21/23 12:29 13:22 Temperature 36.6 C 36.5 C Heart Rate 87 82 Respiratory 16 15 Rate Blood Pressure 160/86 H 155/82 H O2 Saturation 100 99 Oxygen O2 Source Room air - Rads (name of study) L elbow [id number] Relevant Findings:: Final report received, EMP independent interpretation of test Procedures - Laceration (location) L elbow Length in cm: 6 Wound type: Curved, Irregular, Into subcut fat Neurovascular status: Sensory intact, Motor intact, Vascular intact Tendon involvement: Tendon intact Anesthesia: Lidocaine 1%, With bicarb Wound preparation: Hibiclens, Irrigated copiously NS, Debrided moderately Skin layer closure: Nylon, Interrupted, Size #-0 - enter number (3-0), Sutures - enter # (11) Other: Patient tolerated well, No complications, Neurovascular intact, Tetanus booster given PD Medical Decision Making - ED course ED course: 68-year-old gentleman with an extensive large dog bite over the left elbow loosely closed after thorough irrigation. On wound care and started on doxycycline and clindamycin noting childhood anaph ylaxis to penicillin. Departure - Departure Disposition: 01 Home, Self Care Clinical Impression: Dog bite Condition: Good Record reviewed to determine appropriate education?: Yes Instructions: ED Bite Dog Prescriptions: clindamycin HCL [Cleocin HCl] 300 mg PO QID #28 cap Doxycycline [Vibramycin] 100 mg PO BID #14 tablet Comments: Come back for any signs of infection which would include: Redness, swelling, drainage, increased pain, or fevers. You can wash it soap and water. Keep it covered and moist with bacitracin ointment which is available over the counter; avoid neosporin. Follow-up with your physician in about 14 days for suture removal. I sent your prescriptions electronically to [facility] in [place]. Forms: PCP List Discharge Date/Time: 11/21/23 13:22
[2023-11-21] MEDS: BUFFERED LIDOCAINE 10 ML SYRINGE SUBQ STA (12:45)
[2023-11-21] MEDS: TETANUS/DIPHTHERIA/PERTUSSIS 0.5 ML SYRINGE IM ONE (12:45)
[2023-11-21] MEDS: oxyCODONE 5 MG TABLET PO STA (12:45)
[2023-11-21] MEDS: DOXYCYCLINE 100 MG TABLET PO STA (12:48)
[2023-11-21] MEDS: CLINDAMYCIN 150 MG CAPSULE PO STA (12:48)
[2023-11-21] MEDS: BACITRACIN ZINC OINT 1 PACKET TOP STA (13:19)
[2023-11-21 13:28] VITALS: BP 155/82; O2SAT 99
--- NOTE | 2023-11-21 13:32 | XRAY Report ---
PROCEDURE: Elbow 3+V LT INDICATIONS: dog bite TECHNIQUE: 3 views of the elbow were acquired. COMPARISON: None. FINDINGS: Bones: No fractures or dislocations. No suspicious bony lesions. Soft tissues: No effusion. No suspicious soft tissue calcifications or masses. IMPRESSION: No visualized acute fracture or dislocation. However, occult injury cannot be excluded. Recommend tu rt interval imaging follow-up in 7-10 days as clinically indicated for additional evaluation. Reviewed by: Tomasa Del Valle MD on 11/21/2023 1:31 PM PDT Approved by: Tomasa Del Valle MD on 11/21/2023 1:31 PM PDT Station ID: [id number]
== END 2023-11-21 13:22 | disposition home or self-care (01) ==
LOC: ED 12:14
DX: S51.012A Laceration without foreign body of left elbow, initial encounter (principal); S51.032A Puncture wound without foreign body of left elbow, initial encounter; W54.0XXA Bitten by dog, initial encounter; Z23 Encounter for immunization; E78.00 Pure hypercholesterolemia, unspecified; I25.10 Atherosclerotic heart disease of native coronary artery without angina pectoris; Z79.899 Other long term (current) drug therapy
CPT/HCPCS: 12002; 73080; 90471; 90715; 99283; 99284; A9270

== ENCOUNTER 2023-11-23 17:46 | Outpatient (CLI) | payer MEDICARE, MEDICAID | END 2023-11-23 17:47 | disposition home or self-care (01) | LOC: RT 17:46 | PROVIDERS: ATTEND Physician Assistant | DX: Z79.891 Long term (current) use of opiate analgesic (principal) | CPT/HCPCS: 93005 ==